=== PATIENT | male | born 1960 | race Caucasian/White ===

== ENCOUNTER 2017-05-01 14:28 | Outpatient (RCR) | payer MEDICAID ==
[2015-04-07 13:22] VITALS: BMI 27.8
--- NOTE | 2017-02-25 14:53 | PT INITIAL EVALUATION ---
MEDICAL DIAGNOSIS: L) lateral heel neuropathic ulcer TREATMENT DIAGNOSIS: L) lateral heel neuropathic ulcer DATE OF ONSET: 12/26/16 SUBJECTIVE: Pt presents today with R) transtibial amputation with prosthesis in place and open wound on L) lateral heel. Pt reports that about 3 months ago he noticed a blister on his L) lateral heel. He then "bumped" his heel on his w/ c wheel and developed a wound. He has been treating the wound at home, completing "debridement with tweezers" as well as covering the wound with ointment and gauze. He reports that presented to the ER in [place] and was referred to wound care. He reports that there were not concerns of infection at that time, no imaging was completed nor antibiotics prescribed. Pt with history of multiple amputations and non-compliance with recommended therapies, please see EMR for details. REHAB PROBLEM LIST: Open wound on L) lateral heel PREVIOUS MEDICAL HISTORY: DMII, depression, R) transtibial amputation, L) finger amputation, see EMR for details. Pt did report that he feels 'depressed ' and that he 'doesn't care, so I don't take my medications and get my prescriptions'/ OCCUPATION: Pt on disability OBJECTIVE: Sensation: Absent light touch sensation to L) distal LE and foot Special Tests: Easily palpable dorsal pedal pulse of L) foot Other Objective Findings: L) lateral heel wound: 2.5 cm L x 4.5 cm W x 0.2 cm D ASSESSMENT: Pt presents today with wound present on L) lateral heel, open to air at time of evaluation. Moderate amounts of undermining present on all edges of wound with mild necrosis of wound borders. Wound base demonstrates adhered slough at the center, but with no bogginess or jesse end feel at the wound base. PT completed conservative, selective debridement of non-viable tissue and slough with tweezers and scissors to the depth of the subcutaneous tissue in order to reveal undermined area. Wound base cleansed with sterile saline and then covered with therahoney, this was followed by 2 layers of calcium alginate with silver. Foam was cut in a manner to offload the wound base, this was all held in place with gentle tape. PT has contacted the pt's market maker and will plan for consult on friday02/28/17 for offloading options. Pt will benefit from skilled PT wound care to includes sharps debridement as well as advanced wound care product selection and application with pt education to facilitate wound healing with no further set backs. PT encouraged the patient to f/u with his PCP for medication and diabetes management. Short Term Goals 1: Pt to maintain clean, dry and intact dressing between wound care visits. 2: Wound base to demonstrate 100% granulation tissue with no s/s of infection 3: Wound to gradually epithelialize from the edges inward and demonstrate 100% closure 4: Pt to obtain proper offloading orthotic to facilitate wound healing Patient's Goals Wound healing PLAN: Patient to be seen for skilled sharps debridement as well as advanced wound care product selection and application 1-2x/week for up to 90 days. Thank you for this referral. If you have any questions, comments, or concerns about this report or plan, please contact me at . Paula Bernard, PT, DPT MTDD
[~2017-05-01 14:28] MED LIST: ACET-2031 PO; ACET-2146 PO; ALKA-SELTZER B324 M2 PO; ASPI-1471 PO; ASPI1TAB35 PO; CEFT1VIA52 IJ; CEP500 PO; CEPH-13 PO; CIPR-344 PO; CLI150 PO; CLIN300C99 PO; CYCL10TA29 PO; DOCU-202 PO; DOCU-416 PO; FAMO20TA28 PO; FLUO-177 PO; GABA-549 PO; GLYB1.2524 PO; GUAI600T57 PO; HYDR-4309 PO; INSU100V24 SQ; KET10 PO; LEVO-85 PO; LEVO750T44 PO; LISI-362 PO; LISI20TA29 PO; LOR5 PO; LOR7.5/325 PO; METF-408 PO; METF-410 PO; METF-420 PO; METH4TAB66 PO; METHO500 PO; METR-160 PO; MULT-1379 PO; NAPR220C12 PO; ONDA4TAB PO; OXYC-375 PO; OXYC-854 PO; OXYC-856 PO; OXYC-865 PO; OXYC-870 PO; PER PO; POLY17PO25 PO; PRAV10TA46 PO; PRAV80TA29 PO; PROM-110 PO; SENN-287 PO; SULF-198 PO; TRAM-420 PO; TRAM-627 PO
--- NOTE | 2017-05-07 14:53 | PT PLAN OF CARE ---
Physician: Ciara Guerra Patient is being seen: Hamlet Hall Therapist: Paula Bernard, PT, DPT Medical Diagnosis: L) lateral heel neuropathic ulcer Treatment Diagnosis: L) lateral heel neuropathic ulcer Date of Onset: 12/26/16 Date of Initial Evaluation: 02/25/17 Date patient was last seen: 05/07/17 Number of treatments: 10 Number of cancellations/No shows: 5 INTERVENTIONS: The patient has been seen for advanced wound care product selection and application as well as skilled sharps debridement in order to facilitate wound healing. Wound care was coordinated with [employer] [facility] in order to obtain an offloading boot during wound healing, they are currently working to obtain an appropriate shoe for the L) LE to prevent further skin breakdown. Short Term Goals 1: Pt to maintain clean, dry and intact dressing between wound care visits. (met ) 2: Wound base to demonstrate 100% granulation tissue with no s/s of infection ( met) 3: Wound to gradually epithelialize from the edges inward and demonstrate 100% closure (met) 4: Pt to obtain proper offloading orthotic to facilitate wound healing (met) PATIENT'S GOAL: Wound Healing Status of Patient's Goals: Met Patient Compliance: Fair Prognosis: Fair Reasons for continuing therapy: None at this time. Wound demonstrates 100% closure with good epithelial tissue present across previous wound. [facility] is working to obtain a proper shoe for the patient's L) foot to prevent further skin breakdown. The patient reports that he plans to f/u with his PCP regarding his diabetic management upon d/c from PT wound care, PT encouraged the patient to make an appointment as soon as possible. ALYSE
== END 2017-05-01 18:00 | disposition home or self-care (01) ==
LOC: PT 14:28
PROVIDERS: ATTEND Nurse Practitioner Family
DX: L97.421 Non-pressure chronic ulcer of left heel and midfoot limited to breakdown of skin (principal); E11.40 Type 2 diabetes mellitus with diabetic neuropathy, unspecified; F32.9 Major depressive disorder, single episode, unspecified; Z89.511 Acquired absence of right leg below knee; Z89.022 Acquired absence of left finger(s); Z91.19 Patient's noncompliance with other medical treatment and regimen; Z86.14 Personal history of Methicillin resistant Staphylococcus aureus infection
CPT/HCPCS: 97161

== ENCOUNTER 2018-03-05 11:19 | Outpatient (RCR) | payer SELFPAY ==
[2015-04-07 13:22] VITALS: BMI 27.8
[~2018-03-05 11:19] MED LIST changes: -HYDR-4309 PO; +HYDR-653 PO; -METF-410 PO; -METF-420 PO; +METF-450 PO; +METF-452 PO; -METR-160 PO; +METR500T54 PO; -OXYC-375 PO; +OXYC1TAB78 PO
== END 2018-03-05 18:00 | disposition home or self-care (01) ==
LOC: PT 11:19
PROVIDERS: ATTEND Nurse Practitioner Family
DX: B95.1 Streptococcus, group B, as the cause of diseases classified elsewhere (principal); B96.1 Klebsiella pneumoniae [K. pneumoniae] as the cause of diseases classified elsewhere
CPT/HCPCS: 87070; 87073; 87077; 87186

== ENCOUNTER 2018-03-05 14:44 | Inpatient (IN) | payer MEDICAID ==
[~2018-03-05] VITALS: Ht 175.3 cm; Wt 74.9 kg
[2018-03-05 15:10] VITALS: BP 141/89
--- NOTE | 2018-03-05 15:41 | Gen Surgery History & Physical ---
History of Present Illness Chief Complaint left great toe infection History of Present Illness 57 yo diabetic male with left great toe infection. he first noticed a change 10 days ago but it has gotten significantly worse over the last 3 days. it is painful and the pain extends up to the lower leg. it is more painful than his neuropathy pain. there has been some sloughing of skin and purulent drainage. he says he likely bumped it but doesn't remember when. h/o right bka. no fever. no sob. History Home Meds No Active Prescriptions or Reported Meds Allergies: Coded Allergies: penicillin G (Verified Allergy, Severe, RASH, 04/28/16) tramadol (Verified Adverse Reaction, Mild, Headache, 04/28/16) Uncoded Allergies: STRAWBERRIES (Allergy, Unknown, HIVES, 10/24/13) Patient History: FH: bipolar disorder FH: cancer AUNT AUNT FH: diabetes mellitus MOTHER AUNT GRANDMA FH: heart attack MOTHER FH: ovarian cancer GRANDMA FH: stroke MOTHER Review of Systems Constitutional: Other (chronic urinary frequency; otherwise, 10 pt ros neg except per hpi) Exam General Appearance: Alert, Awake, No Acute Distress, Afebrile Eyes: Other (per, eomi) Neck: No Masses Cardiovascular: Other (mildly tachycardic) Respiratory: No Respiratory Distress GI: Abd Soft and Non-Tender Extremities: Other (right bka. left great toe with erythema extending to dorsal aspect of foot. toe is ttp as is left lower leg. there is a large ulcer with some nonviable tissue on distal and plantar aspect of great toe. no foul odor. palp dp pulse. well-healed wound on plantar aspect of foot. ) Integumentary: Other (no rashes) Psych: Appropriate Mood & Affect Assessment and Plan Problems: (1) Toe infection Assessment & Plan: left great toe infection admit to med/surg xray left foot labs hospitalist consult for med mgmnt including diabetic mgmnt likely left great toe amp Venous Thromboembolism Antithrombotics Is Pt On Any Antithrombotics?: MAIKOL Maya Mar 05, 2018 15:40
[2018-03-05] MEDS ORDERED: ACETAMINOPHEN 325 MG TAB PO PRN (15:45)
[2018-03-05] MEDS ORDERED: NS(*) 0.9% 500 ML BAG 500 ML ONE (16:19)
[2018-03-05] MEDS: APAP/HYDROCODONE 325/7.5 TAB PO PRN ×2 (16:20→20:14)
--- NOTE | 2018-03-05 16:39 | RADIOLOGY IMAGING REPORT ---
[place] [facility] [place] NAME: Hamlet Hall : 1960 MR: [id number] V: [id number] EXAM DATE: ORDERING PHYSICIAN: MAIKOL ABERNATHY TECHNOLOGIST: Location: [facility] - [place] Patient: Hamlet Hall : 1960 Visit/Account:[id number] Date of Sevice: 03/05/2018 FOOT 2 VIEW LEFT HISTORY: Possible osteomyelitis left great toe. Redness and swelling history of diabetes, MRSA ADDITIONAL HISTORY: None. COMPARISON: Correlation made with prior film of 02/23/2013 FINDINGS: 2 views were obtained of the left foot. Summary findings anatomic detail is obscured by overlying ba ndage material. There is osteopenia of the distal tip of the distal phalanx of the does appear to be some loss of cortex which is concerning for osteomyelitis. Defect in the soft tissues overlying the distal phalanx are consistent with a wound. Proximal phalanx is intact. First metatarsal is within normal limits. Second through fifth digits are grossly unremarkable. There is no evidence of fracture. No findings to suggest osteomyelitis. There is periarticular osteopenia. Soft tissue swelling is present around the ankle extending into the soft tissues of the dorsum of the foot. Extensive vascular calcifications noted. IMPRESSION: 1. Findings concerning for osteomyelitis involving the distal tip of the distal phalanx of the first digit. 2. Soft tissue swelling and findings consistent with a wound involving the distal end of the first d igit. 3. Periarticular osteopenia. 4. Extensive vascular calcifications. Report Dictated By: Alma Hernandez MD at 03/05/2018 4:29 PM Report E-Signed By: Alma Hernandez MD at 03/05/2018 4:33 PM WSN:[id number]
[2018-03-05] MEDS ORDERED: VANCOMYCIN(*) 1 GM VIAL 2 GM in NS(*) 0.9% 500 ML BAG 500 ML IVPB ONE (17:00)
[2018-03-05 17:10] LABS: PLATELET COUNT, AUTOMATED 248 K/uL (150-450)
[2018-03-05] MEDS: INSULIN HUM LISPRO 100 UN/ML 3 ML VIAL SUBQ PRN ×2 (18:10→20:14)
[2018-03-05 19:20] VITALS: BP 122/88
--- NOTE | 2018-03-05 20:26 | Hospitalist Consultation ---
History of Present Illness Requesting Physician Kiko Reason for Consult medication management History of Present Illness 57yo male with uncontrolled diabetes who is in the hospital for a cellulitic great toe. He is not on any medication for his diabetes for many months. He denies any cp/sob/LE edema/orthopnea/PND. He has never had problems with anesthesia. He denies any h/o DVT/PE, CAD, CVD, CHF or COPD. History Problems: (1) Hyperglycemia due to type 2 diabetes mellitus Status: Acute Home Meds No Active Prescriptions or Reported Meds Allergies: Coded Allergies: penicillin G (Verified Allergy, Severe, RASH, 04/28/16) tramadol (Verified Adverse Reaction, Mild, Headache, 04/28/16) Uncoded Allergies: STRAWBERRIES (Allergy, Unknown, HIVES, 10/24/13) Patient History: FH: bipolar disorder FH: cancer AUNT AUNT FH: diabetes mellitus MOTHER AUNT GRANDMA FH: heart attack MOTHER FH: ovarian cancer GRANDMA FH: stroke MOTHER Other Social/Family Hx He is an occasional alcohol, cigarette and marijuana user. Usually a couple times a month. He last used cocaine about 14 years ago. Hx Smoking: Yes ("4/YEAR") Smoking Status: Light Tobacco Smoker Exposure to Second Hand Smoke?: Yes Caffeine Intake: Soda Caffeine/Cups Per Day: 4 Hx Alcohol Use: Yes Hx Substance Use Disorder: Yes (MARiJUANA ) Social Drug Use: Occasional Social Drugs: Marijuana, Prescription Drugs, Meth, Amphetamines, Crack, Cocaine Amount Of Social Drug/s Used: methamphetamine months ago Review of Systems All Systems Reviewed/Normal: Yes, Except as Noted Exam Vital Signs Vital Signs Date Time Temp Pulse Resp B/P (MAP) Pulse Ox O2 Delivery O2 Flow Rate FiO2 03/05/18 19:20 98.6 110 18 122/88 (99) 93 Room Air 03/05/18 15:37 1.0 General Appearance: Alert, Awake, No Acute Distress Cardiovascular: Regular Rate and Rhythm Respiratory: Clear to Auscultation GI: Abd Soft and Non-Tender Extremities: No Edema Integumentary: Other (Mild erythema over left foot without clear edges. Wrap over great toe. BKA on right and stump is without sores or erythema.) Medical Decision Making Data Points Result Diagram: 03/05/18 1700 03/05/18 1700 EKG / Imaging Imaging Left foot Xray - 1. Findings concerning for osteomyelitis involving the distal tip of the distal phalanx of the first digit. 2. Soft tissue swelling and findings consistent with a wound involving the distal end of the first digit. 3. Periarticular osteopenia. 4. Extensive vascular calcifications. Assessment and Plan Problems: (1) Pre-op evaluation Status: Acute Assessment & Plan: The patient has a low to moderate risk of pulmonary secondary to a remote smoking history and has a low to moderate risk cardiac complications secondary to uncontrolled diabetes, and a remote smoking history. He has no worrisome symptoms or physical exam findings. ECG and CXR are pending. If those are without concerning findings then he could have surgery as soon as it is necessary. He has low to moderate risk of bleeding secondary to Excedrin (which has ASA) yesterday. (2) Diabetic foot ulcer Status: Chronic Assessment & Plan: Left great toe with cellulitis extending into the foot. Dr. Hoover is managing the Vancomycin/Levofloxacin, which should provide good coverage. He doesn't appear toxic. WBC is wnl. He is afebrile and his BP is controlled. However, he is mildly tachycardic. (3) Hyperglycemia due to type 2 diabetes mellitus Status: Acute Assessment & Plan: He hasn't taken any medication for many months. Glucose is likely where he has been for awhile. He isn't hyperosmolar or in DKA. Will use SSI level 3 to cover for now and then consider how treat it half-way. He expressed understanding that he needs to control his blood sugars in order to have a good result from surgery. He is willing to be on medication. (4) Hyponatremia Status: Acute Assessment & Plan: The sodium corrects to normal when correcting for hyperglycemia. Venous Thromboembolism Antithrombotics Is Pt On Any Antithrombotics?: No Exam Sepsis Risk: No Definite Risk IQRA ROSADO MD Mar 05, 2018 20:26
[2018-03-05] MEDS: LEVOFLOXACIN/D5W*500 MG/100 ML 100 ML IVPB SCH (21:17)
--- NOTE | 2018-03-05 22:17 | EKG ---
FACILITY: [facility] PATIENT NAME: DONNIE COVARRUBIAS : [id number] MR: [id number] V: [id number] EXAM DATE: ORDERING PHYSICIAN: IQRA ROSADO TECHNOLOGIST: DIMA Watson Reason : TACHYCARDIA Blood Pressure : / mmHG Vent. Rate : 110 BPM Atrial Rate : 110 BPM P-R Int : 200 ms QRS Dur : 100 ms QT Int : 342 ms P-R-T Axes : 059 -28 066 degrees QTc Int : 462 ms Sinus tachycardia with 1st degree AV block R wave progression consistent with an old ant/sep MD vs lead placement When compared with ECG of 01-DEC-2014 12:01, Inferior T flattening has resolved QT has shortened Confirmed by IQRA ROSADO ([id number]) on 03/06/2018 6:39:48 AM Referred By: Confirmed By:IQRA ROSADO
--- NOTE | 2018-03-05 22:33 | RADIOLOGY IMAGING REPORT ---
FACILITY: [facility] - [place] PATIENT NAME: Hamlet Hall : 1960 MR: [id number] V: [id number] EXAM DATE: ORDERING PHYSICIAN: IQRA ROSADO TECHNOLOGIST: Location: [facility] Patient: Hamlet Hall : 1960 Visit/Account:[id number] Date of Sevice: 03/05/2018 CHEST SINGLE AP Indication: Tobacco use. Comparison: 10/27/2013 and 02/26/2013 Findings: There are persistent coarse interstitial opacities seen bilaterally. These have a perihilar predomina nt distribution and are greater on the right than on the left. Superimposed in the right midlung is a more focal patchy airspace opacity which is new from the prior study. There is some peripheral atele ctasis as well. Subtle nodular opacity seen in the right upper lung which measures 8 mm in size this was not definitely seen on the prior. No pneumothorax or pleural effusion. Heart size is normal. Central pulmonary arteries are prominent. IMPRESSION: 1. Chronic appearing perihilar interstitial opacities bilaterally with a new airspace opacity centere d in the right midlung. This may be infectious or inflammatory. At minimum, short interval follow-up radiographs recommended to evaluate for clearing. 2. Indeterminant 8mm nodular opacity seen in the right upper lung. This is new from 2013. CT scan of the thorax recommended for further workup to exclude a pulmonary nodule. Report Dictated By: Som Tinajero at 03/05/2018 10:26 PM Report E-Signed By: Som Tinajero at 03/05/2018 10:30 PM WSN:[id number]
[2018-03-06] MEDS: VANCOMYCIN(*) 1 GM VIAL 1 GM, VANCOMYCIN (*) 0.5 GM VIAL 0.25 GM in NS(*) 0.9% 250 ML B... IVPB SCH ×4 (00:03→23:17)
[2018-03-06 00:13] VITALS: BP 135/86
[2018-03-06 05:40] VITALS: BP 132/88
[2018-03-06] MEDS: APAP/HYDROCODONE 325/7.5 TAB PO PRN ×4 (05:41→20:53)
[2018-03-06] MEDS: INSULIN HUM LISPRO 100 UN/ML 3 ML VIAL SUBQ PRN ×4 (08:17→20:33)
[2018-03-06 08:18] VITALS: BP 121/81
--- NOTE | 2018-03-06 08:18 | General Surgery Progress Note ---
Subjective Progress Notes Subjective pain in foot and extending up lower leg still present but much improved. Physical Exam Vital Signs Date Time Temp Pulse Resp B/P (MAP) Pulse Ox O2 Delivery O2 Flow Rate FiO2 03/06/18 05:40 98 16 132/88 (103) 90 Room Air 03/06/18 00:13 97.6 03/05/18 15:37 1.0 Intake and Output 03/06/18 07:00 Intake Total 1940 ml Output Total 1600 ml Balance 340 ml Intake Oral 1340 ml IV Total 600 ml Output Urine Total 1600 ml # Voids 3 General Appearance: Alert, Awake, No Acute Distress, Afebrile Cardiovascular: Other (mild tachycardia earlier but now reg rate) Extremities: Other (left lower extremity swelling improved. some ttp but impro luis. wound similar in appearance to yesterday.) Result Diagram: 03/05/18 1700 03/05/18 1700 Assessment and Plan Problems: (1) Toe infection Assessment & Plan: left great toe infection improving on abx xray shows likely osteo distal phalanx of left great toe cont abx wound care elevate extremity hospitalist consulted for med mgmnt amp of left great toe (no OR time until this evening so it will likely occur this weekend) MAIKOL ABERNATHY Mar 06, 2018 08:18
[2018-03-06 09:38] VITALS: Ht 175.3 cm; Wt 74.9 kg
--- NOTE | 2018-03-06 09:56 | Hospitalist Progress Note ---
Subjective Progress Notes Subjective He has no complaints this morning. He had no acute events overnight. His blood sugars have decreased to 263 this morning from 416 last night. Patient Complains of: Cardiovascular: No: Chest Pain Respiratory: No: Shortness of Breath Physical Exam Vital Signs Date Time Temp Pulse Resp B/P (MAP) Pulse Ox O2 Delivery O2 Flow Rate FiO2 03/06/18 08:20 86 03/06/18 08:18 98.6 91 16 121/81 (94) Room Air 03/05/18 15:37 1.0 Intake and Output 03/06/18 00:00 Intake Total 1390 ml Output Total 700 ml Balance 690 ml Intake Oral 1040 ml IV Total 350 ml Output Urine Total 700 ml # Voids 3 General Appearance: Alert, Awake, No Acute Distress, Afebrile Neuro: No Gross deficits Cardiovascular: Regular Rate and Rhythm Respiratory: No Respiratory Distress, Other (diminished lung sounds throughout) GI: Soft and Non-Tender Extremities: Warm, Perfused Psych: Alert & Oriented X3, Appropriate Mood & Affect Result Diagram: 03/05/18 1700 03/05/18 170 Assessment and Plan Problems: (1) Pre-op evaluation Status: Acute Assessment & Plan: The patient has a low to moderate risk of pulmonary secondary to a remote smoking history and has a low to moderate risk cardiac complications secondary to uncontrolled diabetes, and a remote smoking history. He has no worrisome symptoms or physical exam findings. ECG and CXR performed. He will use IS for atelectasis seen on chest x-ray. He will get CBC, CMP and PT/INR for probable surgery tomorrow. He has low to moderate risk of bleeding secondary to Excedrin (which has ASA) 03/05. (2) Diabetic foot ulcer Status: Chronic Assessment & Plan: Left great toe with cellulitis extending into the foot. Dr. Hoover is managing the Vancomycin/Levofloxacin, which should provide good coverage. He doesn't appear toxic. WBC is wnl. He is afebrile and his BP is controlled. Tachycardia improving. (3) Hyperglycemia due to type 2 diabetes mellitus Status: Acute Assessment & Plan: He presented with glucose levels in the 400's. He hasn't taken any medication for many months. Glucose is likely where he has been for awhile. He isn't hyperosmolar or in DKA. Will use SSI level 3 to cover for now and then consider how treat it penitentiary. He expressed understanding that he needs to control his blood sugars in order to have a good result from surgery. He is willing to be on medication. We will add Lantus 10units at night, to reduce sliding scale coverage. (4) Hyponatremia Status: Acute Assessment & Plan: The sodium corrects to normal when correcting for hyperglycemia. Exam Sepsis Risk: No Definite Risk BRAULIO AYERS S[employer]ICA FILTER OPERATOR Mar 06, 2018 09:56
--- NOTE | 2018-03-06 09:58 | Medical Nutrition Therapy ---
Nutrition Anthropometrics Height (Inches): 69.00 Height (Calculated Centimeters: 175.010713 Weight (Pounds): 165 Weight (Calculated Kilograms): 74.928 BMI: 24.4 Artemio Nutrition Score: Adequate Artemio Nutrition Risk Score: 20 Dietary Referral Nutrition Risk Factors: Special Diet Nutrition Risk Comment: Physical Findings Physical Appearance: WNR Skin Appearance Skin Appearance: Edema Edema Location Modifier: Left Edema Location: Lower Extremity Type of Edema: Degree of Edema: Gastrointestinal Symptoms GI Symtoms: Tube Present: Bowel Sounds: Recent Bowel Pattern: Stool Characteristics: Nutrition/Food History Non-compliant W/Diet Nutritional Diagnosis Nutritional Risk Acuity 2: Blood Glucose > 300mg/dl, Abcess/Non-Healing Wound Nutritional Risk Acuity 3: Substance abuse Past Medical History: HX NON-COMPLIANCE WITH ALL ASPECTS OF DIABETES PER H&P, Toe amputation, depression, T2DM, diabetic neuropathy, diabetic foot ulcer, hypertension, wound infection, illicit drug use Nutritional Acuity: 2-Moderate Nutrition Diagnosis: Inappropriate Carb Intake Nutrition Etiology: Disinterested in Nutr. Ed Nutrition Problem/Etiology/Sym: Excessive Carbohydrate Intake related to Food- and nutrition-related knowledge deficit concerning appropriate amount of carbohydrate intake and Limited adherence with recommendations to modify carbohydrate intake AEB glucose of 416 upon admission. Energy Requirement: 2360 ([place] Jeor: Actual BW X 1.5) Protein Requirement: 75 (Actual BW Kg X 1.0) Fluid Requirement: 2360 Diet Type: Diabetic Nutrition Intervention: Cont diet as ordered Diet Comment To RSA: ALLERGY TO STRAWBERRIES Nutrition Monitoring & Eval Nutrition Goals: Eat 75-100% Meal RD Patient Assessment Time: [address] Assessment Type: RD Assessment Patient Nutrition Acuity: 2-Moderate Follow Up Date: Mar 08, 2018 Nutritional Comment: 03/06/18 Pt admitted for left great toe infection with plans for amputation. HX of T2DM with non-compliance and no recent diabetes medication taken. Within normal wt range with BMI of 24.4. Alb 2.7, Glu 263. Receiving Diabetes diet with not reports of intake. Follow clinical progression, labs, intake, etc. -ANASTACIO WHITNEY Mar 06, 2018 09:58
[2018-03-06] MEDS ORDERED: NS(*) 0.9% 1000 ML BAG 1,000 ML IV PRN (11:05)
--- NOTE | 2018-03-06 11:59 | General Surgery Progress Note ---
Subjective Progress Notes Subjective toe and leg feel much better than yesterday Physical Exam Vital Signs Date Time Temp Pulse Resp B/P (MAP) Pulse Ox O2 Delivery O2 Flow Rate FiO2 03/06/18 08:20 86 03/06/18 08:18 98.6 91 16 121/81 (94) Room Air 03/05/18 15:37 1.0 Intake and Output 03/06/18 06:59 Intake Total 1940 ml Output Total 1600 ml Balance 340 ml Intake Oral 1340 ml IV Total 600 ml Output Urine Total 1600 ml # Voids 3 General Appearance: Alert, Awake, No Acute Distress Extremities: Pulses (2+ palpable left DP; 1+ PT), Other (left great toe edematous, not erythematous but violaceous) Psych: Alert & Oriented X3, Appropriate Mood & Affect Result Diagram: 03/05/18 1700 03/05/18 170 Assessment and Plan Problems: (1) Toe infection Status: Acute Assessment & Plan: left great toe infection improving on abx xray shows likely osteo distal phalanx of left great toe cont abx wound care elevate extremity hospitalist consulted for med mgmnt amp of left great toe (no OR time until this evening so it will likely occur this weekend) 03/06/18 1155: I am assuming care from Dr. Hoover. In review of his chart and exam, I agree that it appears that he has osteomyelitis of the distal phalanx. He is also improving with current antibiotic regimen. His hyperglycemia is improving but persists. He would benefit from optimizing both the inflammatory/infectious process and hyperglycemia before proceeding with the amputation. So long as there is progress evident, I will postpone amputation. Discussed the plan with the patient and hospitalist service. (2) Diabetic foot ulcer with osteomyelitis Onset Date: ~ 02/25/2018 Status: Acute Time Spent: < 30 min Exam Sepsis Risk: No Definite Risk KAREN BHATIA MD Mar 06, 2018 11:42
[2018-03-06 15:17] VITALS: BP 130/80
[2018-03-06] MEDS: LEVOFLOXACIN/D5W*500 MG/100 ML 100 ML IVPB SCH (20:31)
[2018-03-06] MEDS: DOCUSATE SODIUM 100 MG CAP PO SCH (20:31)
[2018-03-06] MEDS: INSULIN GLARGINE 100 U/ML 3 ML PEN SUBQ SCH (20:32)
[2018-03-06 20:49] VITALS: BP 149/94
[2018-03-06 23:09] VITALS: BP 141/89
[2018-03-07 03:12] VITALS: BP 145/102
[2018-03-07] MEDS: APAP/HYDROCODONE 325/7.5 TAB PO PRN ×2 (03:21→20:59)
[2018-03-07 05:38] LABS: INR 1.03
[2018-03-07 05:42] LABS: PLATELET COUNT, AUTOMATED 243 K/uL (150-450)
[2018-03-07 07:37] VITALS: BP 117/85
[2018-03-07] MEDS: INSULIN HUM LISPRO 100 UN/ML 3 ML VIAL SUBQ PRN ×4 (07:42→20:46)
[2018-03-07] MEDS: VANCOMYCIN(*) 1 GM VIAL 1 GM, VANCOMYCIN (*) 0.5 GM VIAL 0.5 GM in NS(*) 0.9% 250 ML BA... IVPB SCH ×2 (08:38→16:20)
[2018-03-07] MEDS: DOCUSATE SODIUM 100 MG CAP PO SCH ×2 (08:39→20:59)
--- NOTE | 2018-03-07 09:40 | General Surgery Progress Note ---
Subjective Progress Notes Subjective Toe is throbbing but overall he continues to feel better Physical Exam Vital Signs Date Time Temp Pulse Resp B/P (MAP) Pulse Ox O2 Delivery O2 Flow Rate FiO2 03/07/18 07:43 95 03/07/18 07:43 Room Air 03/07/18 07:37 97.9 92 18 117/85 (96) 03/06/18 23:09 1.0 Intake and Output 03/07/18 07:00 Intake Total 1090 ml Output Total 3450 ml Balance -2360 ml Intake Oral 820 ml IV Total 270 ml Output Urine Total 3450 ml # Voids 1 General Appearance: Alert, Awake, No Acute Distress Extremities: Other (toe is wrapped, report is that it looks incrementally better, I will examine directly tomorrow) Result Diagram: 03/07/18 0508 03/07/18 0508 Assessment and Plan Problems: (1) Toe infection Status: Acute Assessment & Plan: left great toe infection improving on abx xray shows likely osteo distal phalanx of left great toe cont abx wound care elevate extremity hospitalist consulted for med mgmnt amp of left great toe (no OR time until this evening so it will likely occur this weekend) 03/06/18 1155: I am assuming care from Dr. Hoover. In review of his chart and e xam, I agree that it appears that he has osteomyelitis of the distal phalanx. He is also improving with current antibiotic regimen. His hyperglycemia is improving but persists. He would benefit from optimizing both the inflammatory/infectious process and hyperglycemia before proceeding with the a mputation. So long as there is progress evident, I will postpone amputation. Discussed the plan with the patient and hospitalist service. 03/07/18: continue to medically optimize for expected amputation to create best environment for postoperative healing. (2) Diabetic foot ulcer with osteomyelitis Onset Date: ~ 02/25/2018 Status: Acute Time Spent: < 30 min Exam Sepsis Risk: No Definite Risk KAREN BHATIA MD Mar 07, 2018 08:53
--- NOTE | 2018-03-07 10:19 | Hospitalist Progress Note ---
Subjective Progress Notes Subjective He denies any specific complaints. No fever. Physical Exam Vital Signs Date Time Temp Pulse Resp B/P (MAP) Pulse Ox O2 Delivery O2 Flow Rate FiO2 03/07/18 07:43 95 03/07/18 07:43 Room Air 03/07/18 07:37 97.9 92 18 117/85 (96) 03/06/18 23:09 1.0 Intake and Output 03/07/18 07:00 Intake Total 1090 ml Output Total 3450 ml Balance -2360 ml Intake Oral 820 ml IV Total 270 ml Output Urine Total 3450 ml # Voids 1 General Appearance: Alert, Awake Extremities: Other (Right LE BKA. Left great toe with multiple confluent ulcerations and some serosanguinous drainage.) Integumentary: Other (only minimal surrounding erythema on left great toe/remainder of foot looks good) Psych: Alert & Oriented X3 Result Diagram: 03/07/18 0508 03/07/18 0508 Assessment and Plan Problems: (1) Pre-op evaluation Status: Acute Assessment & Plan: The patient has a low to moderate risk of pulmonary complications secondary to a remote smoking history and has a low to moderate risk cardiac complications secondary to uncontrolled diabetes, and a remote smoking history. He has no worrisome symptoms or physical exam findings. ECG and CXR performed. He will use incentive spirometry for atelectasis seen on chest x-ray. He has low to moderate risk of bleeding secondary to Excedrin (which has ASA) 03/05. (2) Diabetic foot ulcer Status: Chronic Assessment & Plan: Left great toe with cellulitis extending into the foot. Dr. Hoover is managing the Vancomycin/Levofloxacin, which should provide good coverage. He doesn't appear toxic. WBC is in normal range. He is afebrile and his BP is controlled. (3) Hyperglycemia due to type 2 diabetes mellitus Status: Acute Assessment & Plan: He presented with glucose levels in the 400's. He hadn't taken any medication for many months. Glucose is likely where he has been for awhile. He wasn't hyperosmolar or in DKA. Will use Lantus 10units SQ at night and SSI to cover for now and then consider how treat it long term care administrator. He expressed understanding that he needs to control his blood sugars in order to have a good result from surgery. He is willing to be on medication. (4) Hyponatremia Status: Acute Assessment & Plan: The sodium corrects to normal when correcting for hyperglycemia. (5) Lung nodule Assessment & Plan: Seen on CXR. Will set up for CT scan of his chest to further evaluate. He does have past history of tobacco/substance abuse. Exam Sepsis Risk: No Definite Risk LINDSEY KERR MD Mar 07, 2018 10:19
--- NOTE | 2018-03-07 10:41 | Antimicrobial Stewardship ---
Antimicrobial Stewardship Empiricly appropriate: Yes Comment On Vancomycin and Levaquin for osteomyelitis of toe Renal/Hepatic dosing: Yes Serum concentration checked: Yes (Monitoring Vanco Troughs. 03/06/18 13.63 ; 03/07/18 14.16. Increased dose of Vanco from 1.25g IV Q8h to 1.5 g IV q8h) Reviewed for Drug Interaction: Yes Monitored for Toxicities: Yes Clinically stable/improving: Yes IV to PO Opportunity: No Determine cumulative duration: Undetermined as may do amputation Comment If do amputation and remove all infected bone then may only need one more week following the amputation. May possibly need 6 weeks. RICKI KHOURY Mar 07, 2018 10:41
[2018-03-07 11:00] VITALS: BP 142/93
[2018-03-07] MEDS ORDERED: IOPAMIDOL 76% 50 ML INFUS BTL 50 ML ONE (11:47)
--- NOTE | 2018-03-07 15:07 | RADIOLOGY IMAGING REPORT ---
FACILITY: [facility] [place] PATIENT NAME: Hamlet Hall : 1960 MR: [id number] V: [id number] EXAM DATE: ORDERING PHYSICIAN: LINDSEY KERR TECHNOLOGIST: [place] [facility] [place] Hamlet Hall : 1960 Visit/Account:[id number] Date of Sevice: 03/07/2018 CT chest without and with contrast Indication: Lung nodule. Comparison: Chest x-ray on 03/05/2018. Technique: Axial CT images are obtained through the chest prior to and after administration of 75 mL Isovue 370 IV contrast. Reformatted coronal and sagittal images were reviewed. One of the following dose optimization techniques was utilized in the performance of this exam: Autom ated exposure control; adjustment of the mA and/or kV according to the patient's size; or use of an i terative reconstruction technique. Specific details can be referenced in the facility's radiology C T exam operational policy. Findings: Heart is normal size without pericardial effusion. Mild coronary artery calcifications. Aorta shows n o aneurysm or dissection. The pulmonary arteries are grossly normal. The mediastinum and hilar regions show a few small lymph nodes. There is more prominent lymph nodes i n the right hilar region measuring 1.6 x 1.7 cm. There are also small calcified lymph nodes present. No abnormal density seen in the mediastinum. No definite right upper lobe nodule is identified. The left lower lobe does show a noncalcified nodul e measuring 7 x 6 mm seen on image #233 of series 6. No other discrete nodules are identified. The eris ngs do show mild peripheral interstitial chronic changes. Lungs also show mild dependent atelectasis. There is a prominent scar present in the right middle lobe lateral aspect. No defined mass is seen i n this region. No consolidations, pleural effusion or pneumothorax. The distal right trachea does kitty w some debris. There is also some debris seen in the mid right mainstem bronchus. Airways are otherwi se clear. Bony structures show no acute fractures or aggressive bony lesions. Chest wall shows no enlarged axil zuleima lymph nodes or masses. Limited views of the upper abdomen are unremarkable. IMPRESSION: 1. No discrete nodule seen in the right upper lobe. There is a 7 mm nodule seen in the left lower lob e. This noncalcified. This too small characterize and could be postinflammatory as there are small ca lcified lymph nodes present. However suggest follow-up per Fleischner guidelines described below. 2. Lungs do show mild peripheral chronic interstitial changes. There is a prominent scar seen in the lateral aspect right middle lobe without a discrete nodule or mass. No indication of acute cardiopulm onary disease. 3. There are some calcified lymph nodes and some small amount of prominent lymph nodes in mediastinum and hilar regions. This may be all secondary to previous granulomatous disease however the noncalcif ied lymph nodes are nonspecific at this time. 4. Mild debris is seen in the right-sided distal trachea and the mid aspect the right mainstem bronch us. FLEISCHNER SOCIETY FOLLOW-UP GUIDELINES FOR NEWLY DETECTED INCIDENTAL NODULES IN PERSONS 35 YEARS OF AGE OR OLDER. *THESE RECOMMENDATIONS DO NOT APPLY TO LUNG CANCER SCREENING, PATIENTS WITH IMMUNOSUPPRESSION , OR PA TIENTS WITH KNOWN PRIMARY MALIGNANCY. SOLITARY SOLID NODULES If nodule size is less than 6 mm: Low risk patient - no follow up needed High risk patient - Optional CT at 12 months. If nodule size is 6-8 mm: Low risk patient - follow up CT at 6-12 months, then consider CT at 18-24 months if no change. High risk patient - follow up CT at 6-12 months, then CT at 18-24 months if no change. If nodule size is greater than 8 mm: Low risk patient - Consider CT at 3, 9 months, and 24 months; or PET/CT, or tissue sampling, or a com bination thereof. High risk patient - Consider CT at 3, 9 months, and 24 months; or PET/CT, or tissue sampling, or a co mbination thereof. LOW RISK PATIENT: Minimal or absent history of tobacco use and of ther known risk factors. HIGH RISK PATIENT: Tobacco use, family history of lung cancer, upper pulmonary lobe location of nodul e, presence of emphysema, pulmonary fibrosis, older age.Davion H, Farrukh DP, Jolanta CANO, et al. Guidel roger for Management of Incidental Pulmonary Nodules Detected on CT Images: From the Fleischner Soci[employer] y 2017. Radiology. Report Dictated By: Glynn Engle at 03/07/2018 2:49 PM Report E-Signed By: Glynn Engle at 03/07/2018 3:03 PM WSN:[id number]
[2018-03-07 15:09] VITALS: BP 140/98
--- NOTE | 2018-03-07 20:47 | Medical Nutrition Therapy ---
Nutrition Anthropometrics Height (Inches): 69.00 Height (Calculated Centimeters: 175.528672 Weight (Pounds): 165 Weight (Calculated Kilograms): 74.928 BMI: 24.4 Artemio Nutrition Score: Adequate Artemio Nutrition Risk Score: 20 Dietary Referral Nutrition Risk Factors: Special Diet Nutrition Risk Comment: Physical Findings Physical Appearance: WNR Skin Appearance Skin Appearance: Edema Edema Location Modifier: Left Edema Location: Lower Extremity Type of Edema: Degree of Edema: Gastrointestinal Symptoms GI Symtoms: Tube Present: Bowel Sounds: Recent Bowel Pattern: Stool Characteristics: Nutrition/Food History Non-compliant W/Diet Nutritional Diagnosis Nutritional Risk Acuity 2: Blood Glucose > 300mg/dl, Abcess/Non-Healing Wound Nutritional Risk Acuity 3: Substance abuse Past Medical History: HX NON-COMPLIANCE WITH ALL ASPECTS OF DIABETES PER H&P, Toe amputation, depression, T2DM, diabetic neuropathy, diabetic foot ulcer, hypertension, wound infection, illicit drug use Nutritional Acuity: 2-Moderate Nutrition Diagnosis: Inappropriate Carb Intake Nutrition Etiology: Disinterested in Nutr. Ed Nutrition Problem/Etiology/Sym: Excessive Carbohydrate Intake related to Food- and nutrition-related knowledge deficit concerning appropriate amount of carbohydrate intake and Limited adherence with recommendations to modify carbohydrate intake AEB glucose of 416 upon admission. Energy Requirement: 2360 ([place]-St Jeor: Actual BW X 1.5) Protein Requirement: 75 (Actual BW Kg X 1.0) Fluid Requirement: 2360 Diet Type: Diabetic Nutrition Intervention: Cont diet as ordered Diet Comment To RSA: ALLERGY TO STRAWBERRIES Nutrition Monitoring & Eval Nutrition Goals: Eat 75-100% Meal RD Patient Assessment Time: [address] Assessment Type: RD Re-Assessment Patient Nutrition Acuity: 2-Moderate Follow Up Date: Mar 11, 2018 Nutritional Comment: 03/06/18 Pt admitted for left great toe infection with plans for amputation. HX of T2DM with non-compliance and no recent diabetes medication taken. Within normal wt range with BMI of 24.4. Alb 2.7, Glu 263. Receiving Diabetes diet with no reports of intake. Follow clinical progression, labs, intake, etc. -T 03/07/18 Alb 2.5, Glu 324, Low H/H. Lantus AM and HS, Lispro SSI. Consuming 100% of meals. Follow intake, labs, etc. -ANASTACIO WHITNEY Mar 07, 2018 20:47
[2018-03-07] MEDS: LEVOFLOXACIN/D5W*500 MG/100 ML 100 ML IVPB SCH (20:58)
[2018-03-07] MEDS: INSULIN GLARGINE 100 U/ML 3 ML PEN SUBQ SCH (21:00)
[2018-03-07 22:15] VITALS: BP 116/73
[2018-03-08] MEDS: VANCOMYCIN(*) 1 GM VIAL 1 GM, VANCOMYCIN (*) 0.5 GM VIAL 0.5 GM in NS(*) 0.9% 250 ML BA... IVPB SCH ×3 (00:19→17:00)
[2018-03-08] MEDS ORDERED: NS(*) 0.9% 1000 ML BAG 1,000 ML IV PRN (01:59)
[2018-03-08 03:48] VITALS: BP 132/94
[2018-03-08] MEDS: DOCUSATE SODIUM 100 MG CAP PO SCH ×2 (08:40→21:00)
[2018-03-08] MEDS: INSULIN GLARGINE 100 U/ML 3 ML PEN SUBQ SCH ×2 (08:48→21:02)
[2018-03-08] MEDS: INSULIN HUM LISPRO 100 UN/ML 3 ML VIAL SUBQ PRN ×4 (08:48→21:01)
[2018-03-08 08:55] VITALS: BP 120/79
[2018-03-08] MEDS: APAP/HYDROCODONE 325/7.5 TAB PO PRN ×2 (09:06→17:12)
--- NOTE | 2018-03-08 09:34 | General Surgery Progress Note ---
Subjective Progress Notes Subjective frustrated, not able to sleep due to multiple interruptions, toe is throbbing Physical Exam Vital Signs Date Time Temp Pulse Resp B/P (MAP) Pulse Ox O2 Delivery O2 Flow Rate FiO2 03/08/18 08:55 98.0 90 16 120/79 (93) 91 Room Air 03/06/18 23:09 1.0 Intake and Output 03/08/18 07:00 Intake Total 2941 ml Output Total 5880 ml Balance -2939 ml Intake Oral 2046 ml IV Total 895 ml Output Urine Total 5880 ml # Voids 10 General Appearance: Alert, Awake Neuro: No Gross deficits Extremities: Other (Toe remains swollen, no erythema, violaceous appearance decrease as in an improvement, bleeding at time with dressing change) Result Diagram: 03/07/18 0508 03/07/18 0508 Assessment and Plan Problems: (1) Toe infection Status: Acute Assessment & Plan: left great toe infection improving on abx xray shows likely osteo distal phalanx of left great toe cont abx wound care elevate extremity hospitalist consulted for med mgmnt amp of left great toe (no OR time until this evening so it will likely occur this weekend) 03/06/18 1155: I am assuming care from Dr. Hoover. In review of his chart and exam, I agree that it appears that he has osteomyelitis of the distal phalanx. He is also improving with current antibiotic regimen. His hyperglycemia is improving but persists. He would benefit from optimizing both the inflammatory/infectious process and hyperglycemia before proceeding with the amputation. So long as there is progress evident, I will postpone amputation. Discussed the plan with the patient and hospitalist service. 03/07/18: continue to medically optimize for expected amputation to create best environment for postoperative healing. 03/08/18: his toe is improved again some today. Glucose levels consistently in high 200s to 300s. Long acting insulin is added today. Recommend continuing optimization of medical care with anticipated amputation of great toe on Friday by Dr. Hoover. Timing the amputation with medical optimization is critical to keeping the amputation limited to his toe at this time. I have also addressed his complaints of being unable to sleep due to interruptions by requesting that his care be consolidated and VS to [facility]. (2) Diabetic foot ulcer with osteomyelitis Onset Date: ~ 02/25/2018 Status: Acute Time Spent: < 30 min Exam Sepsis Risk: No Definite Risk KAREN BHATIA MD Mar 08, 2018 09:34
--- NOTE | 2018-03-08 11:06 | Hospitalist Progress Note ---
Subjective Progress Notes Subjective He is upset that there were problems with his IV yesterday. He denies cp/sob. Physical Exam Vital Signs Date Time Temp Pulse Resp B/P (MAP) Pulse Ox O2 Delivery O2 Flow Rate FiO2 03/08/18 09:06 91 Room Air 03/08/18 08:55 98.0 90 16 120/79 (93) 03/06/18 23:09 1.0 Intake and Output 03/08/18 07:00 Intake Total 2941 ml Output Total 5880 ml Balance -2939 ml Intake Oral 2046 ml IV Total 895 ml Output Urine Total 5880 ml # Voids 10 General Appearance: Alert, Awake, No Acute Distress Integumentary: Other (left foot is without erythema or swelling. The left 1st toe is swollen, mascerated ) Result Diagram: 03/07/1850703/07/18507 Assessment and Plan Problems: (1) Pre-op evaluation Status: Acute Assessment & Plan: The patient has a low to moderate risk of pulmonary complications secondary to a remote smoking history and has a low to moderate risk cardiac complications secondary to uncontrolled diabetes, and a remote smoking history. He has no worrisome symptoms or physical exam findings. ECG and CXR performed. He will use incentive spirometry for atelectasis seen on chest x-ray. He has low to moderate risk of bleeding secondary to Excedrin (which has ASA) 03/05. (2) Diabetic foot ulcer Status: Chronic Assessment & Plan: Left great toe with cellulitis extending into the foot. Dr. Hoover is managing the Vancomycin/Levofloxacin, which should provide good coverage. He doesn't appear toxic. WBC is in normal range. He is afebrile and his BP is controlled. (3) Hyperglycemia due to type 2 diabetes mellitus Status: Acute Assessment & Plan: He presented with glucose levels in the 400's. He hadn't taken any medication for many months. He wasn't hyperosmolar or in DKA upon admission. Started Lantus 10 units SQ at night (03/06) and starting 15 units this morning. Also, he is getting SSI to cover for now. He expressed understanding that he needs to control his blood sugars in order to have a good result from surgery. He is willing to be on medication. (4) Hyponatremia Status: Acute Assessment & Plan: The sodium corrects to normal when correcting for hyperglycemia. (5) Lung nodule Assessment & Plan: CT did not show a RUL nodule that was seen on the CXR, but did show a LLL nodule. He does have past history of tobacco/substance abuse. He was notified of the CT findings. He will need a follow up CT of the chest in 6-12 months. Exam Sepsis Risk: No Definite Risk IQRA ROSADO MD Mar 08, 2018 11:06
[2018-03-08] MEDS: LEVOFLOXACIN/D5W*500 MG/100 ML 100 ML IVPB SCH (21:02)
[2018-03-08 22:14] VITALS: BP 148/92
[2018-03-09] MEDS: VANCOMYCIN(*) 1 GM VIAL 1 GM, VANCOMYCIN (*) 0.5 GM VIAL 0.5 GM in NS(*) 0.9% 250 ML BA... IVPB SCH (00:43)
[2018-03-09] MEDS: INSULIN HUM LISPRO 100 UN/ML 3 ML VIAL SUBQ PRN ×4 (08:04→21:38)
[2018-03-09] MEDS: INSULIN GLARGINE 100 U/ML 3 ML PEN SUBQ SCH ×2 (08:04→21:38)
--- NOTE | 2018-03-09 08:25 | General Surgery Progress Note ---
Subjective Progress Notes Subjective Very bitter and irritable this morning. I mentioned that his blood sugars are very elevated and we need to get them down before surgery. He angrily responds that how is he supposed to eat healthy when he only gets $200 a month in public assistance to eat. No other complaints this morning. Physical Exam Vital Signs Date Time Temp Pulse Resp B/P (MAP) Pulse Ox O2 Delivery O2 Flow Rate FiO2 03/08/18 22:14 99.5 16 148/92 (110) 94 Room Air 03/08/18 08:55 90 03/06/18 23:09 1.0 Intake and Output 03/09/18 07:00 Intake Total 2366 ml Output Total 2750 ml Balance -384 ml Intake Oral 1736 ml IV Total 630 ml Output Urine Total 2750 ml General Appearance: Alert, Awake, No Acute Distress, Afebrile Extremities: Other (Right BKA, well healed. Left great toe with distal wound but improved erythema and edema. Draining some purulent fluid.) Result Diagram: 03/07/18 0508 03/07/18 0508 Assessment and Plan Problems: (1) Toe infection Status: Acute Assessment & Plan: left great toe infection improving on abx xray shows likely osteo distal phalanx of left great toe cont abx wound care elevate extremity hospitalist consulted for med mgmnt amp of left great toe (no OR time until this evening so it will likely occur this weekend) 03/06/18 1155: I am assuming care from Dr. Hoover. In review of his chart and exam, I agree that it appears that he has osteomyelitis of the distal phalanx. He is also improving with current antibiotic regimen. His hyperglycemia is impr oving but persists. He would benefit from optimizing both the inflammatory/infectious process and hyperglycemia before proceeding with the amputation. So long as there is progress evident, I will postpone amputation. Discussed the plan with the patient and hospitalist service. 03/07/18: continue to medically optimize for expected amputation to create best environment for postoperative healing. 03/08/18: his toe is improved again some today. Glucose levels consistently in high 200s to 300s. Long acting insulin is added today. Recommend continuing optimization of medical care with anticipated amputation of great toe on Friday by Dr. Hoover. Timing the amputation with medical optimization is critical to keeping the amputation limited to his toe at this time. I have also addressed his complaints of being unable to sleep due to interruptions by requesting that his care be consolidated and VS to [facility]. 03/09/18: Continued improvement of cellulitis. Still with hyperglycemia...dis cussed with hospitalist this morning working on improving blood sugars to decrease risk of postop infection. Will make NPO after midnight tonight and will look at the OR schedule tomorrow for left great toe amputation. Will ask social work to see patient and discuss assistance he may be eligible for after discharge. (2) Diabetic foot ulcer with osteomyelitis Onset Date: ~ 02/25/2018 Status: Chronic Condition Stable. Time Spent: < 30 min Exam Sepsis Risk: No Definite Risk PENELOPE ROOT MD Mar 09, 2018 08:25
[2018-03-09 08:40] VITALS: BP 130/85
[2018-03-09] MEDS: DOCUSATE SODIUM 100 MG CAP PO SCH ×2 (08:44→21:37)
[2018-03-09] MEDS: VANCOMYCIN(*) 1 GM VIAL 1 GM, VANCOMYCIN (*) 0.5 GM VIAL 0.25 GM in NS(*) 0.9% 250 ML B... IVPB SCH ×2 (08:44→16:43)
[2018-03-09] MEDS: APAP/HYDROCODONE 325/7.5 TAB PO PRN ×3 (08:47→21:41)
--- NOTE | 2018-03-09 09:13 | Hospitalist Progress Note ---
Subjective Progress Notes Subjective He is very frustrated this morning. He doesn't want me in his room. Physical Exam Vital Signs Date Time Temp Pulse Resp B/P (MAP) Pulse Ox O2 Delivery O2 Flow Rate FiO2 03/09/18 08:40 97.8 92 16 130/85 (100) 93 Room Air 03/06/18 23:09 1.0 Intake and Output 03/09/18 07:00 Intake Total 2366 ml Output Total 2750 ml Balance -384 ml Intake Oral 1736 ml IV Total 630 ml Output Urine Total 2750 ml General Appearance: Alert, Awake, No Acute Distress, Afebrile Psych: Other (appears frustrated) Result Diagram: 03/07/18 0508 03/07/18 0508 Assessment and Plan Problems: (1) Pre-op evaluation Status: Acute Assessment & Plan: The patient has a low to moderate risk of pulmonary complications secondary to a remote smoking history and has a low to moderate risk cardiac complications secondary to uncontrolled diabetes, and a remote smoking history. He has no worrisome symptoms or physical exam findings. ECG and CXR performed. He will use incentive spirometry for atelectasis seen on chest x-ray. He has low to moderate risk of bleeding secondary to Excedrin (which has ASA) 03/05. (2) Diabetic foot ulcer Status: Chronic Assessment & Plan: Left great toe with cellulitis extending into the foot. Dr. Hoover is managing the Vancomycin/Levofloxacin, which should provide good coverage. He doesn't appear toxic. WBC is in normal range. He is afebrile and his BP is controlled. (3) Hyperglycemia due to type 2 diabetes mellitus Status: Acute Assessment & Plan: He presented with glucose levels in the 400's. He hadn't taken any medication for many months. He wasn't hyperosmolar or in DKA upon admission. Started Lantus 10 units SQ at night (03/06) and starting 15 units 03/08. Also, he is getting SSI to cover for now. He expressed understanding that he needs to control his blood sugars in order to have a good result from surgery. He is willing to be on medication. (4) Hyponatremia Status: Acute Assessment & Plan: The sodium corrects to normal when correcting for hyperglycemia. (5) Lung nodule Assessment & Plan: CT did not show a RUL nodule that was seen on the CXR, but did show a LLL nodule. He does have past history of tobacco/substance abuse. He was notified of the CT findings. He will need a follow up CT of the chest in 6-12 months. Exam Sepsis Risk: No Definite Risk BRAULIO AYERS [employer] ATT[employer]ER Mar 09, 2018 09:13
[2018-03-09 21:18] VITALS: BP 143/105
[2018-03-09] MEDS: LEVOFLOXACIN/D5W*500 MG/100 ML 100 ML IVPB SCH (21:37)
[2018-03-10] VITALS (11 sets, daily range): BP systolic 106–134; BP diastolic 70–98
[2018-03-10] MEDS: VANCOMYCIN(*) 1 GM VIAL 1 GM, VANCOMYCIN (*) 0.5 GM VIAL 0.25 GM in NS(*) 0.9% 250 ML B... IVPB SCH ×3 (00:45→17:23)
[2018-03-10 05:31] LABS: PLATELET COUNT, AUTOMATED 285 K/uL (150-450)
[2018-03-10] MEDS ORDERED: FAMOTIDINE(*) 20MG/50ML PREMIX 50 ML IVPB ONE (05:40)
[2018-03-10] MEDS ORDERED: NORMOSOL R SOLN(*) 1000 ML BAG 1,000 ML IV ONE (05:40)
--- NOTE | 2018-03-10 06:29 | General Surgery Progress Note ---
Subjective Progress Notes Subjective No new complaints this morning. Physical Exam Vital Signs Date Time Temp Pulse Resp B/P (MAP) Pulse Ox O2 Delivery O2 Flow Rate FiO2 03/09/18 21:30 91 Room Air 03/09/18 21:18 97.6 94 16 143/105 (118) 03/06/18 23:09 1.0 Intake and Output 03/10/18 06:59 Intake Total 3120 ml Output Total 2480 ml Balance 640 ml Intake Oral 1920 ml IV Total 1200 ml Output Urine Total 2480 ml # Bowel Movements 1 General Appearance: Alert, Awake, No Acute Distress, Afebrile Extremities: Other (Left foot dressing in place, C/D/I, I didn't remove it since he's going to surgery this morning.) Result Diagram: 03/10/1851103/10/18511 Assessment and Plan Problems: (1) Toe infection Status: Acute Assessment & Plan: left great toe infection improving on abx xray shows likely osteo distal phalanx of left great toe cont abx wound care elevate extremity hospitalist consulted for med mgmnt amp of left great toe (no OR time until this evening so it will likely occur this weekend) 03/06/18 1155: I am assuming care from Dr. Hoover. In review of his chart and exam, I agree that it appears that he has osteomyelitis of the distal phalanx. He is also improving with current antibiotic regimen. His hyperglycemia is improving but persists. He would benefit from optimizing both the inflammatory/infectious process and hyperglycemia before proceeding with the amputation. So long as there is progress evident, I will postpone amputation. Discussed the plan with the patient and hospitalist service. 03/07/18: continue to medically optimize for expected amputation to create best environment for postoperative healing. 03/08/18: his toe is improved again some today. Glucose levels consistently in high 200s to 300s. Long acting insulin is added today. Recommend continuing o ptimization of medical care with anticipated amputation of great toe on Friday by Dr. Hoover. Timing the amputation with medical optimization is critical to keeping the amputation limited to his toe at this time. I have also addressed his complaints of being unable to sleep due to interruptions by requesting that his care be consolidated and VS to [facility]. 03/09/18: Continued improvement of cellulitis. Still with hyperglycemia...discussed with hospitalist this morning working on improving b lood sugars to decrease risk of postop infection. Will make NPO after midnight tonight and will look at the OR schedule tomorrow for left great toe amputation. Will ask social work to see patient and discuss assistance he may be eligible for after discharge. 03/10/18: No changes. To OR this morning for left great toe amputation. Pt agreeable with proceeding with this surgery. (2) Diabetic foot ulcer with osteomyelitis Onset Date: ~ 02/25/2018 Status: Chronic Condition Stable. Time Spent: < 30 min Exam Sepsis Risk: No Definite Risk PENELOPE ROOT MD Mar 10, 2018 06:29
--- NOTE | 2018-03-10 08:37 | Pharmacy Note ---
Pharmacy Note Note: Vanco trough ordered for 03/10/18 at 0700. Last dose was given at 0045 and level was done using the 0500 lab draw sample because patient refused 0700 draw. Level returned as 24.79 which is a false elevation due to the short time between dose and draw. Continue the dose at 1.25G every 8 hours at this point. PUNEET MITCHELL Mar 10, 2018 08:37
[2018-03-10] MEDS: DOCUSATE SODIUM 100 MG CAP PO SCH ×2 (09:00→21:00)
--- NOTE | 2018-03-10 09:19 | Hospitalist Progress Note ---
Subjective Progress Notes Subjective He has no complaints this morning. He had no acute events overnight. Patient Complains of: Cardiovascular: No: Chest Pain Respiratory: No: Shortness of Breath Physical Exam Vital Signs Date Time Temp Pulse Resp B/P (MAP) Pulse Ox O2 Delivery O2 Flow Rate FiO2 03/10/18 08:47 99.1 88 16 134/93 (107) 89 Room Air 03/06/18 23:09 1.0 Intake and Output 03/10/18 00:00 Intake Total 2815 ml Output Total 2050 ml Balance 765 ml Intake Oral 1920 ml IV Total 895 ml Output Urine Total 2050 ml # Bowel Movements 1 General Appearance: Alert, Awake, No Acute Distress, Afebrile Neuro: No Gross deficits Cardiovascular: Regular Rate and Rhythm Respiratory: No Respiratory Distress, Clear to Auscultation GI: Soft and Non-Tender Psych: Alert & Oriented X3 Result Diagram: 03/10/1851103/10/18511 Assessment and Plan Problems: (1) Pre-op evaluation Status: Acute Assessment & Plan: The patient has a low to moderate risk of pulmonary complications secondary to a remote smoking history and has a low to moderate risk cardiac complications secondary to uncontrolled diabetes, and a remote smoking history. He has no worrisome symptoms or physical exam findings. ECG and CXR performed. He will use incentive spirometry for atelectasis seen on chest x-ray. He has low to moderate risk of bleeding secondary to Excedrin (which has ASA) 03/05. (2) Diabetic foot ulcer Status: Chronic Assessment & Plan: Left great toe with cellulitis extending into the foot. Dr. Hoover is managing the Vancomycin/Levofloxacin, which should provide good coverage. He doesn't appear toxic. WBC is in normal range. He is afebrile and his BP is controlled. He will have amputation of toe today. (3) Hyperglycemia due to type 2 diabetes mellitus Status: Acute Assessment & Plan: He presented with glucose levels in the 400's. He hadn't taken any medication for many months. He wasn't hyperosmolar or in DKA upon admission. Started Lantus 10 units SQ at night (03/06) and starting 15 units 03/08. Also, he is getting SSI to cover for now. He expressed understanding that he needs to control his blood sugars in order to have a good result from surgery. He is willing to be on medication. We will hold insulin this morning, secondary to NPO status. (4) Hyponatremia Status: Acute Assessment & Plan: The sodium corrects to normal when correcting for hyperglycemia. (5) Lung nodule Assessment & Plan: CT did not show a RUL nodule that was seen on the CXR, but did show a LLL nodule. He does have past history of tobacco/substance abuse. He was notified of the CT findings. He will need a follow up CT of the chest in 6-12 months. Exam Sepsis Risk: No Definite Risk BRAULIO AYERS GLUE SPRAYER Mar 10, 2018 09:19
[2018-03-10] MEDS ORDERED: LIDOCAINE/SOD BICARB 8.4% SYR ID ONE (09:25)
[2018-03-10] MEDS ORDERED: DEXAMETHASONE SOD PHOS 10MG/ML ONE (09:54)
[2018-03-10] MEDS ORDERED: ONDANSETRON 4 MG/2 ML VIAL ONE (09:54)
[2018-03-10] MEDS ORDERED: PROPOFOL EMUL(*) 10MG/ML 20 ML 20 ML ONE (09:54)
[2018-03-10] MEDS ORDERED: MIDAZOLAM 2 MG/2 ML VIAL ONE (09:55)
[2018-03-10] MEDS ORDERED: ROPIVACAINE 0.5% 20 ML VIAL ONE ×2 (09:55→10:43)
[2018-03-10] MEDS ORDERED: NEOMYCIN/POLYMYX/BACITR 30 GM TP ONE (09:55)
--- NOTE | 2018-03-10 11:24 | Post Operative Progress Note ---
Post Operative Progress Note Date: Mar 10, 2018 Time: 11:19 Surgeon: Kaykay Dictation number: [id number] Anesthesia: LMA by Dr. Arenas Pre-Op Diagnosis: Left great toe diabetic ulcer with osteomyelitis in distal phalanx Post-Op Diagnosis: LOVELY Findings: C/W dx Procedure(s): Left great toe amputation through proximal phalanx Specimen Removed:(May be N/A): Left great toe Complications: None Fluids: See anesthesia record Estimated Blood Loss: Minimal Date OP Note Dictated: Mar 10, 2018 Time OP Note Dictated: 11:20 PENELOPE ROOT MD Mar 10, 2018 11:24
--- NOTE | 2018-03-10 12:34 | OPERATIVE REPORT 1 ---
EVENT DATE: March 10, 2018 SURGEON: Leeroy Mccracken M.D. ANESTHESIOLOGIST: Tommy Arenas M.D. ANESTHESIA: LMA. PREOPERATIVE DIAGNOSIS Left great toe diabetic ulcer with osteomyelitis in the distal phalanx. POSTOPERATIVE DIAGNOSIS Left great toe diabetic ulcer with osteomyelitis in the distal phalanx. PROCEDURE PERFORMED Left great toe amputation through the proximal phalanx. COMPLICATIONS None. CONDITION Stable. ESTIMATED BLOOD LOSS Minimal. INDICATIONS Patient is a 57-year-old poorly controlled diabetic whom I have taken care of in the past and, in fact, I have amputated a couple of toes on his right foot but ultimately he required a [id number] amputation. He had apparently been doing fairly well as I have not seen him for a couple of years but he developed a wound on his left great toe and came in to see his PCM, who was concerned about cellulitis and so consulted the surgeons and Dr. Hoover admitted him to the hospital and started him on IV antibiotics. An x-ray is consistent with osteomyelitis in the distal phalanx. He was kept on IV antibiotics until the cellulitis improved and his blood sugar control was improved and then he was consented for a left great toe amputation. DESCRIPTION OF PROCEDURE The patient was brought to the operating room and placed supine on the operating table. LMA anesthesia was administered and his left foot and toes were prepped and draped in sterile fashion. A time-out was completed and I injected the great toe in a ring block with 0.5% ropivacaine plain. He had also gotten a regional block performed by Dr. Arenas. I then marked the skin proximal to the ulcerations but still leaving enough skin to cover the amputation site. I then used the #15 blade and made an incision in the skin in a fish-mouth type configuration all the way down through all the soft tissues down to bone. I then went right through the interphalangeal joint and then the distal toe and passed it off the field. I then used a periosteal elevator to separate the soft tissues away from the proximal phalanx and then divided the proximal phalanx with the bone cutter and removed this and passed it off the field and sent it with the specimen. I used a rongeur and debrided the exposed bone and got rid of any sharp shards. I irrigated and dried the wound and reapproximated the soft tissues including the flexor and extensor tendons with interrupted 3-0 Vicryl sutures. The skin was closed with interrupted 2-0 Nylon sutures. The skin was cleaned and dried and Bacitracin was applied to the incision followed by Xeroform gauze and 4x4 gauze and then I wrapped his foot and ankle with Kerlix and an Sai wrap. He was then awakened, LMA removed and he was transported to the recovery room in stable condition, having tolerated the procedure without any apparent problems. ALYSE
[2018-03-10] MEDS: INSULIN HUM LISPRO 100 UN/ML 3 ML VIAL SUBQ PRN ×2 (17:23→21:14)
[2018-03-10] MEDS: APAP/HYDROCODONE 325/7.5 TAB PO PRN ×2 (17:43→21:42)
[2018-03-10] MEDS: INSULIN GLARGINE 100 U/ML 3 ML PEN SUBQ SCH (21:14)
[2018-03-10] MEDS: LEVOFLOXACIN/D5W*500 MG/100 ML 100 ML IVPB SCH (21:21)
[2018-03-11] MEDS ORDERED: VANCOMYCIN(*) 1 GM VIAL 1 GM, VANCOMYCIN (*) 0.5 GM VIAL 0.25 GM in NS(*) 0.9% 250 ML B... IVPB SCH (01:30)
[2018-03-11] MEDS: APAP/HYDROCODONE 325/7.5 TAB PO PRN (03:19)
[2018-03-11] MEDS ORDERED: DOCU-416 PO (06:19)
[2018-03-11] MEDS ORDERED: LEVO-85 PO (06:19)
[2018-03-11] MEDS ORDERED: Acetaminophen/Hydrocodone PO (06:19)
--- NOTE | 2018-03-11 06:23 | Short(Outpt) Discharge Summary ---
Discharge Summary Reason for Hosp/Final Diag: (1) Toe infection Status: Acute Hospital Course & Plan: left great toe infection improving on abx xray shows likely osteo distal phalanx of left great toe cont abx wound care elevate extremity hospitalist consulted for med mgmnt amp of left great toe (no OR time until this evening so it will likely occur this weekend) 03/06/18 1155: I am assuming care from Dr. Hoover. In review of his chart and exam, I agree that it appears that he has osteomyelitis of the distal phalanx. He is also improving with current antibiotic regimen. His hyperglycemia is improving but persists. He would benefit from optimizing both the inflammatory/infectious process and hyperglycemia before proceeding with the amputation. So long as there is progress evident, I will postpone amputation. Discussed the plan with the patient and hospitalist service. 03/07/18: continue to medically optimize for expected amputation to create best environment for postoperative healing. 03/08/18: his toe is improved again some today. Glucose levels consistently in high 200s to 300s. Long acting insulin is added today. Recommend continuing optimization of medical care with anticipated amputation of great toe on Friday by Dr. Hoover. Timing the amputation with medical optimization is critical to keeping the amputation limited to his toe at this time. I have also addressed his complaints of being unable to sleep due to interruptions by requesting that his care be consolidated and VS to [facility]. 03/09/18: Continued improvement of cellulitis. Still with hyperglycemia...discussed with hospitalist this morning working on improving blood sugars to decrease risk of postop infection. Will make NPO after midnight tonight and will look at the OR schedule tomorrow for left great toe amputation. Will ask social work to see patient and discuss assistance he may be eligible for after discharge. 03/10/18: No changes. To OR this morning for left great toe amputation. Pt agreeable with proceeding with this surgery. 03/11/18: POD#1 s/p left great toe amputation through proximal phalanx. No complaints this morning. He's very anxious to be discharged. Will d/c to home with o/p f/u. (2) Diabetic foot ulcer with osteomyelitis Onset Date: ~ 02/25/2018 Status: Chronic Departure Discharge to: Home, Self Care Discharge Instructions Home Meds Active Scripts Docusate Sodium (COLACE) 100 Mg Capsule, 1 CAP PO BID, #30 CAP 0 Refills TAKE WITH A FULL GLASS OF WATER Prov:PENELOPE MCCRACKEN MD 03/11/18 Levofloxacin 500 Mg Tab (LEVAQUIN 500 MG TAB) 500 Mg Tablet, 1 TAB PO QDAY, #10 TAB 0 Refills Prov:PENELOPE MCCRACKEN MD 03/11/18 [Apap/Hydrocodone 325/7.5 Tab] 7.5 MG/325 MG TAB No Conflict Check, 1 TAB PO Q4H PRN for PAIN, #30 TAB 0 Refills Prov:PENELOPE MCCRACKEN MD 03/11/18 Follow up Referrals: General Surgery - 03/25/18 @ Surgery, General with PENELOPE MCCRACKEN MD You have a follow up appointment scheduled with Dr. Mccracken on 03/25/18, at 4:00pm. He's now at the new clinic [facility] to the hospital [place] [facility]. Diet: Diabetic Activity: As Tolerated Special Instructions: Remove the current dressing that's on your left foot on , 03/12/18, then you can shower. After showering, cover your left foot amputation site with a band-aid, or guaze and tape, and change the dressing daily until there's no further drainage. When there's no further drainage, you can leave the amputation site open to air. PENELOPE MCCRACKEN MD Mar 11, 2018 06:23
[2018-03-11 06:32] VITALS: BP 141/97
[2018-03-11 07:17] LABS: PLATELET COUNT, AUTOMATED 288 K/uL (150-450)
[2018-03-11] MEDS: LEVOFLOXACIN 500 MG TAB PO SCH ×3 (08:16→09:00)
[2018-03-11] MEDS: DOCUSATE SODIUM 100 MG CAP PO SCH (08:16)
[2018-03-11] MEDS: INSULIN HUM LISPRO 100 UN/ML 3 ML VIAL SUBQ PRN (08:18)
[2018-03-11] MEDS: INSULIN GLARGINE 100 U/ML 3 ML PEN SUBQ SCH (08:18)
[2018-03-11] MEDS ORDERED: INSU100I30 SUBQ (11:38)
--- NOTE | 2018-03-11 11:41 | Hospitalist Progress Note ---
Subjective Progress Notes Subjective 57M with Toe infection, now post operative. Doing well, discharge today. Patient Complains of: Gastrointestinal: No Nausea, No Vomiting Physical Exam Vital Signs Date Time Temp Pulse Resp B/P (MAP) Pulse Ox O2 Delivery O2 Flow Rate FiO2 03/11/18 10:25 92 Room Air 03/11/18 06:32 98.1 18 141/97 (112) 03/10/18 19:28 109 03/10/18 13:30 1.0 Intake and Output 03/11/18 07:00 Intake Total 2280 ml Output Total 1825 ml Balance 455 ml Intake Oral 240 ml IV Total 2040 ml Output Urine Total 1825 ml # Voids 1 # Bowel Movements 1 General Appearance: No Acute Distress, Afebrile Neuro: No Gross deficits Cardiovascular: Normal Rhythm & Peripheral Pulses Respiratory: No Respiratory Distress Result Diagram: 03/11/1854 03/11/18653 Assessment and Plan Problems: (1) Diabetic foot ulcer Status: Chronic Assessment & Plan: Left great toe with cellulitis extending into the foot. Dr. Hoover is managing the Vancomycin/Levofloxacin, which should provide good coverage. He doesn't appear toxic. WBC is in normal range. He is afebrile and his BP is controlled. He will have amputation of toe today. (2) Pre-op evaluation Status: Acute Assessment & Plan: The patient has a low to moderate risk of pulmonary complications secondary to a remote smoking history and has a low to moderate risk cardiac complications secondary to uncontrolled diabetes, and a remote smoking history. He has no worrisome symptoms or physical exam findings. ECG and CXR performed. He will use incentive spirometry for atelectasis seen on c hest x-ray. He has low to moderate risk of bleeding secondary to Excedrin (which has ASA) 03/05. (3) Hyperglycemia due to type 2 diabetes mellitus Status: Acute Assessment & Plan: He presented with glucose levels in the 400's. He hadn't taken any medication for many months. He wasn't hyperosmolar or in DKA upon admission. Started Lantus 10 units SQ at night (03/06) and starting 15 units 03/08. He expressed understanding that he needs to control his blood sugars in order to have a good result from surgery. Discharge with Lantus 15U in am and 10U at night, needs follow up to monitor and adjust insulin regimen. (4) Hyponatremia Status: Acute Assessment & Plan: The sodium corrects to normal when correcting for hyperglycemia. (5) Lung nodule Assessment & Plan: CT did not show a RUL nodule that was seen on the CXR, but did show a LLL nodule. He does have past history of tobacco/substance abuse. He was notified of the CT findings. He will need a follow up CT of the chest in 6-12 months. Exam Sepsis Risk: No Definite Risk MONTERO MARY CARMEN COATES DO Mar 11, 2018 11:41
== END 2018-03-11 11:36 | disposition home or self-care (01) | DRG 504 ==
LOC: MED 14:47
PROVIDERS: ADMIT Surgery; ATTEND Surgery
PROC: 0Y6Q0Z1 Detachment at Left 1st Toe, High, Open Approach (ICD-10-PCS; principal; 2018-03-10 10:09)
DX: M86.9 Osteomyelitis, unspecified (principal); L03.116 Cellulitis of left lower limb; E87.1 Hypo-osmolality and hyponatremia; E11.69 Type 2 diabetes mellitus with other specified complication; E11.628 Type 2 diabetes mellitus with other skin complications; E11.65 Type 2 diabetes mellitus with hyperglycemia; E11.621 Type 2 diabetes mellitus with foot ulcer; R91.1 Solitary pulmonary nodule; E11.40 Type 2 diabetes mellitus with diabetic neuropathy, unspecified; I10 Essential (primary) hypertension; F41.8 Other specified anxiety disorders; K21.9 Gastro-esophageal reflux disease without esophagitis; L97.529 Non-pressure chronic ulcer of other part of left foot with unspecified severity; Z89.511 Acquired absence of right leg below knee; Z87.891 Personal history of nicotine dependence; Z91.14 Patient's other noncompliance with medication regimen
CPT/HCPCS: 36415; 36416; 71045; 71270; 76942; 80202; 82040; 82247; 82310; 82374; 82435; 82565; 82947; 82948; 83036; 84075; 84132; 84155; 84295; 84450; 84460; 84520; 85025; 85610; 88305; 88311; 93005; J1100; J1815; J1956; J2250; J2405; J2704; J2795; J3370; J3490; J7030; J7040; J7050; Q9967

== ENCOUNTER 2018-04-23 01:08 | Day surgery (SDC) | payer MEDICAID ==
[2018-03-06 09:38] VITALS: Ht 174 cm; Wt 73.5 kg
[2018-04-23] VITALS (8 sets, daily range): BP systolic 102–151; BP diastolic 83–101
[~2018-04-23] VITALS: Ht 174 cm; Wt 73.5 kg
[~2018-04-23 01:08] MED LIST changes: +Acetaminophen/Hydrocodone PO; +GLIP-152 PO; +HYDR-385 PO; +INSU100I30 SUBQ; +METR500T15 PO; -METR500T54 PO
[2018-04-23] MEDS ORDERED: DEXAMETHASONE SOD PHOS 10MG/ML ONE (07:06)
[2018-04-23] MEDS ORDERED: fentaNYL CITR 100 MCG/2 ML AMP ONE (07:06)
[2018-04-23] MEDS ORDERED: ONDANSETRON 4 MG/2 ML VIAL ONE (07:06)
[2018-04-23] MEDS ORDERED: LIDOCAINE MPF 1% 5 ML VIAL ONE (07:06)
[2018-04-23] MEDS ORDERED: PROPOFOL EMUL(*) 10MG/ML 20 ML 40 ML ONE (07:06)
[2018-04-23] MEDS ORDERED: PROPOFOL EMUL(*) 10MG/ML 20 ML 20 ML ONE (07:06)
[2018-04-23] MEDS ORDERED: KETAMINE HCL-NS 50 MG/5 ML SYR ONE (07:07)
[2018-04-23] MEDS ORDERED: NEOMYCIN/POLYMYX/BACITR 30 GM TP ONE (07:15)
[2018-04-23] MEDS ORDERED: ROPIVACAINE 0.5% 20 ML VIAL ONE (07:15)
[2018-04-23] MEDS ORDERED: NS 0.9% IRRIGATION 1000ML PLCT IR ONE (08:19)
[2018-04-23] MEDS ORDERED: OXYC-854 PO (08:57)
[2018-04-23] MEDS ORDERED: DOCU-416 PO (08:57)
--- NOTE | 2018-04-23 09:02 | Short(Outpt) Discharge Summary ---
Discharge Summary Reason for Hosp/Final Diag: (1) Diabetic foot ulcer Status: Chronic Hospital Course & Plan: Left 2nd toe amputation completed without problems. (2) Osteomyelitis of ankle or foot, right, acute Status: Resolved Departure Discharge to: Home, Self Care Discharge Instructions Home Meds Active Scripts Docusate Sodium (COLACE) 100 Mg Capsule, 1 CAP PO BID, #30 CAP 0 Refills TAKE WITH A FULL GLASS OF WATER Prov:PENELOPE ROOT MD 04/23/18 Oxycodone Hcl/Acet 5/325 Mg (ENDOCET 5-325 TABLET) 1 Each Tablet, 1 TAB PO Q4H PRN for PAIN, #30 TAB 0 Refills Prov:PENELOPE ROOT MD 04/23/18 Sulfamethoxazole/Trimet 800-160 Mg Tab (BACTRIM DS TABLET) 1 Each Tablet, 1 TAB PO Q12H, #30 TAB 0 Refills Prov:PENELOPE ROOT MD 04/20/18 Reported Medications Aspirin/Acetaminophen/Caffeine (EXCEDRIN EXTRA STRENGTH CAPLET) 1 Each Tablet, 1 EACH PO QDAY 04/20/18 Glipizide (GLIPIZIDE) 5 Mg Tablet, 5 MG PO QDAY 03/19/18 Discontinued Scripts Sulfamethoxazole/Trimet 800-160 Mg Tab (BACTRIM DS TABLET) 1 Each Tablet, 1 TAB PO Q12H, #20 TAB 0 Refills Prov:PENELOPE ROOT MD 04/07/18 Hydrocodone Bit/Acetaminophen (HYDROCODON-ACETAMINOPHEN 5-325) 1 Each Tablet, 1 TAB PO Q4H PRN for PAIN, #30 TAB 0 Refills Prov:PENELOPE ROOT MD 04/07/18 Docusate Sodium (COLACE) 100 Mg Capsule, 1 CAP PO BID, #30 CAP 0 Refills TAKE WITH A FULL GLASS OF WATER Prov:PENELOPE ROOT MD 03/11/18 Follow up Referrals: General Surgery - 05/08/18 @ Surgery, General with PENELOPE ROOT MD You have a follow up appointment scheduled with Dr. Root on 05/08/18, at 2:30pm. Diet: Diabetic Activity: As Tolerated Special Instructions: Leave the dressing and wraps on until 04/26/18, then you can remove all of the dressings and then apply a band-aid over the 2nd toe stump and change this daily. You may start showering on 04/26/18, but don't immerse the incision for 2 weeks. Problem Qualifiers (1) Diabetic foot ulcer: Diabetic foot ulcer location: toe Diabetes mellitus type: type 2 Laterality: left Non-pressure ulcer stage: with necrosis of bone Qualified Codes: E11.621 - Type 2 diabetes mellitus with foot ulcer; L97.524 - Non-pressure chronic ulcer of other part of left foot with necrosis of bone PENELOPE ROOT MD Apr 23, 2018 09:02
--- NOTE | 2018-04-23 09:08 | Post Operative Progress Note ---
Post Operative Progress Note Date: Apr 23, 2018 Time: 09:02 Surgeon: Kaykay Dictation number: [id number] Anesthesia: LMA by Dr. Mancilla Pre-Op Diagnosis: Left 2nd toe diabetic ulcer with osteomyelitis in distal phalanx Post-Op Diagnosis: LOVELY Findings: C/W dx Procedure(s): Left 2nd toe amputation through proximal phalanx Specimen Removed:(May be N/A): Left 2nd toe Complications: None Total Tourniquet Time: None Splint: None Fluids: See anesthesia record Estimated Blood Loss: Minimal Date OP Note Dictated: Apr 23, 2018 Time OP Note Dictated: 09:04 PENELOPE ROOT MD Apr 23, 2018 09:08
--- NOTE | 2018-04-23 10:02 | OPERATIVE REPORT 1 ---
EVENT DATE: April 23, 2018 SURGEON: Leeroy Mccracken MD ANESTHESIOLOGIST: Chester Mancilla MD ANESTHESIA: LMA PREOPERATIVE DIAGNOSIS Left second toe diabetic ulcer with osteomyelitis in the distal phalanx. POSTOPERATIVE DIAGNOSIS Left second toe diabetic ulcer with osteomyelitis in the distal phalanx. PROCEDURE PERFORMED Left second toe amputation through the proximal phalanx. COMPLICATIONS None. CONDITION Stable. ESTIMATED BLOOD LOSS Minimal. INDICATIONS This is a 57-year-old gentleman with poorly controlled diabetes who has had several toe amputations and ultimately a right below knee amputation in the past and even a month ago, I amputated his left great toe and then subsequently he developed an ulcer on the distal portion of the second toe and then it has evolved into osteomyelitis. DESCRIPTION OF PROCEDURE The patient was brought to the operating room and placed supine on the operating table. LMA anesthesia was administered and his left foot and ankle were prepped and draped in sterile fashion. A timeout was completed and I marked the skin on the toe and anesthetized the toe in a digital block fashion with 0.5% Ropivacaine plan and then made a fishmouth type incision on the second toe. I preserved as much skin and soft tissues as I could. I dissected completely through the soft tissues and went through the joint between the proximal phalanges of his second toe and then removed the distal portion of the toe. I then changed to new gloves since the distal toe was infected, and then irrigated and dried the wound, made sure it was hemostatic and then used a periosteal elevator, the soft tissues from the proximal phalanx and then cut the proximal phalanx mid-shaft and then removed the distal portion of the proximal phalanx and passed it off the field. I then again irrigated and dried the wound, made sure it was hemostatic and then closed the soft tissues as well as the flexor and extensor tendons, overlying the divided bone with interrupted 3-0 Vicryl sutures and the skin was closed with interrupted 2-0 Nylon sutures. The skin was cleaned, dried and I applied antibiotic ointment to the incision and sutures, followed by a Xeroform and then covered it with 4 x 4 gauze, wrapped his foot and ankle with a Kerlix and then an junaid wrap. The patient was then awakened and LMA removed. He was transported to the recovery room in stable condition having tolerated the procedure without any apparent problems. ALYSE
[2018-04-23] MEDS ORDERED: FAMOTIDINE 20 MG TAB PO ONE (13:45)
[2018-04-23] MEDS ORDERED: MIDAZOLAM 2 MG/2 ML VIAL IVP PRN (13:45)
[2018-04-23] MEDS ORDERED: LEVOFLOXACIN/D5W*500 MG/100 ML 100 ML IVPB ONE (13:45)
[2018-04-23] MEDS ORDERED: LIDOCAINE/SOD BICARB 8.4% SYR ID ONE (13:45)
[2018-04-23] MEDS ORDERED: NORMOSOL R SOLN(*) 1000 ML BAG 1,000 ML IV PRN (13:45)
== END 2018-04-23 09:15 | disposition home or self-care (01) ==
LOC: OR 01:08
PROVIDERS: ATTEND Surgery
DX: E11.69 Type 2 diabetes mellitus with other specified complication (principal); E11.621 Type 2 diabetes mellitus with foot ulcer; L97.524 Non-pressure chronic ulcer of other part of left foot with necrosis of bone; E11.65 Type 2 diabetes mellitus with hyperglycemia; M86.9 Osteomyelitis, unspecified; Z79.84 Long term (current) use of oral hypoglycemic drugs
CPT/HCPCS: 28160; 36416; 82948; 88305; 88311; J1100; J1956; J2001; J2250; J2405; J2704; J2795; J3010; J3490

== ENCOUNTER 2018-08-27 20:30 | Emergency (ER) | payer MEDICAID ==
[2018-03-06 09:38] VITALS: Wt 80.7 kg
--- NOTE | 2018-08-27 20:39 | ER Report ---
History and Physical Time Seen By MD: 20:38 HPI/ROS CHIEF COMPLAINT: Left 3rd toe complication HISTORY OF PRESENT ILLNESS: Patient is a 57-year-old male here with complaints of left 3rd toe partial amputation while in the bathtub today. Patient reports that he has been seen in the outpatient wound clinic for several months for distal toe infections which have been stable. Last visit was several weeks ago which time there is no drainage, bleeding or tissue loss. Patient reports that the distal tip of the 3rd digit fell off while in the tub with subsequent bleeding. There is apparent bone exposure at time of evaluation. Patient does report swelling in the extremity for the past several days which reportedly is improving with elevation of the extremity. REVIEW OF SYSTEMS: Constitutional: No fever, no chills. Eyes: No discharge. ENT: No sore throat. Cardiovascular: No chest pain, no palpitations. Respiratory: No cough, no shortness of breath. Gastrointestinal: No abdominal pain, no vomiting. Genitourinary: No hematuria. Musculoskeletal: Left distal 3rd toe partial amputation Skin: No rashes. Neurological: No headache. Allergies: Coded Allergies: penicillin G (Verified Allergy, Severe, RASH, 04/20/18) tramadol (Verified Adverse Reaction, Mild, Headache, 04/20/18) Uncoded Allergies: STRAWBERRIES (Allergy, Unknown, HIVES, 10/24/13) Home Meds Active Scripts Oxycodone Hcl/Acet 5/325 Mg (ENDOCET 5-325 TABLET) 1 Each Tablet, 1 TAB PO TID PRN for PAIN, #12 TAB 0 Refills Prov:PENELOPE ROOT MD 05/08/18 Docusate Sodium (COLACE) 100 Mg Capsule, 1 CAP PO BID, #30 CAP 0 Refills TAKE WITH A FULL GLASS OF WATER Prov:PENELOPE ROOT MD 04/23/18 Sulfamethoxazole/Trimet 800-160 Mg Tab (BACTRIM DS TABLET) 1 Each Tablet, 1 TAB PO Q12H, #30 TAB 0 Refills Prov:PENELOPE ROOT MD 04/20/18 Reported Medications Aspirin/Acetaminophen/Caffeine (EXCEDRIN EXTRA STRENGTH CAPLET) 1 Each Tablet, 1 EACH PO QDAY 04/20/18 Glipizide (GLIPIZIDE) 5 Mg Tablet, 5 MG PO QDAY 03/19/18 Hx Smoking: Yes ("4/YEAR") Smoking Status: Light Tobacco Smoker Exposure to Second Hand Smoke?: Yes Hx Substance Use Disorder: Yes (MARiJUANA ) Hx Alcohol Use: Yes Constitutional Vital Sign - Last 24 Hours 08/27/18 08/27/18 08/27/18 08/27/18 20:40 20:41 21:00 21:30 Temp 98.8 Pulse 110 124 Resp 20 B/P (MAP) 157/120 (132) 157/120 118/105 (109) 150/104 (119) Pulse Ox 100 82 O2 Delivery Room Air Physical Exam General Appearance: The patient is alert, has no immediate need for airway protection and no signs of toxicity. Anxious appearing Eyes: Pupils equal and round no pallor or injection. ENT, Mouth: Mucous membranes are moist. Respiratory: There are no retractions, lungs are clear to auscultation. Cardiovascular: Regular rate and rhythm. Gastrointestinal: Abdomen is soft and non tender, no masses, bowel sounds normal. Neurological: Baseline diabetic neuropathy in distal extremity, no other focal neurological findings on exam Skin: Warm and dry, no rashes. Musculoskeletal: Exposed left 3rd digit of bone, no significant erythema or drainage at this time DIFFERENTIAL DIAGNOSIS: After history and physical exam differential diagnosis was considered for necrosis, amputation, diabetic foot infection, neuropathy Medical Decision Making Data Points Result Diagram: 08/27/18220108/27/182201 Laboratory Hematology Test 08/27/18 22:02 Red Blood Count 4.97 M/uL (4.00-5.60) Mean Corpuscular Volume 81.5 fL (80.0-96.0) Mean Corpuscular Hemoglobin 28.2 pg (26.0-33.0) Mean Corpuscular Hemoglobin Concent 34.6 g/dL (32.0-36.0) Red Cell Distribution Width 13.7 % (11.5-14.5) Mean Platelet Volume 7.7 fL (7.2-11.1) Neutrophils (%) (Auto) 62.3 % (39.4-72.5) Lymphocytes (%) (Auto) 15.3 % (17.6-49.6) Monocytes (%) (Auto) 16.5 % (4.1-12.4) Eosinophils (%) (Auto) 3.8 % (0.4-6.7) Basophils (%) (Auto) 2.1 % (0.3-1.4) Nucleated RBC Relative Count (auto) 0.0 /100WBC Neutrophils # (Auto) 3.0 K/uL (2.0-7.4) Lymphocytes # (Auto) 0.7 K/uL (1.3-3.6) Monocytes # (Auto) 0.8 K/uL (0.3-1.0) Eosinophils # (Auto) 0.2 K/uL (0.0-0.5) Basophils # (Auto) 0.1 K/uL (0.0-0.1) Nucleated RBC Absolute Count (auto) 0.00 K/uL Sodium Level 137 mmol/L (137-145) Potassium Level 3.5 mmol/L (3.5-5.0) Chloride Level 100 mmol/L (98-107) Carbon Dioxide Level 26 mmol/L (22-30) Blood Urea Nitrogen 13 mg/dl (9-21) Creatinine 0.80 mg/dl (0.66-1.25) Glomerular Filtration Rate Calc > 60.0 Random Glucose 309 mg/dl (75-110) Calcium Level 8.6 mg/dl (8.4-10.2) Total Bilirubin 0.5 mg/dl (0.2-1.3) Aspartate Amino Transf (AST/SGOT) 18 U/L (0-35) Alanine Aminotransferase (ALT/SGPT) 21 U/L (0-56) Alkaline Phosphatase 199 U/L (0-126) Total Protein 6.5 g/dl (6.3-8.2) Albumin 3.3 g/dl (3.5-5.0) Chemistry Test 08/27/18 22:02 White Blood Count 4.8 k/uL (4.5-11.0) Red Blood Count 4.97 M/uL (4.00-5.60) Hemoglobin 14.0 g/dL (14.0-18.0) Hematocrit 40.6 % (42.0-52.0) Mean Corpuscular Volume 81.5 fL (80.0-96.0) Mean Corpuscular Hemoglobin 28.2 pg (26.0-33.0) Mean Corpuscular Hemoglobin Concent 34.6 g/dL (32.0-36.0) Red Cell Distribution Width 13.7 % (11.5-14.5) Platelet Count 173 K/uL (150-450) Mean Platelet Volume 7.7 fL (7.2-11.1) Neutrophils (%) (Auto) 62.3 % (39.4-72.5) Lymphocytes (%) (Auto) 15.3 % (17.6-49.6) Monocytes (%) (Auto) 16.5 % (4.1-12.4) Eosinophils (%) (Auto) 3.8 % (0.4-6.7) Basophils (%) (Auto) 2.1 % (0.3-1.4) Nucleated RBC Relative Count (auto) 0.0 /100WBC Neutrophils # (Auto) 3.0 K/uL (2.0-7.4) Lymphocytes # (Auto) 0.7 K/uL (1.3-3.6) Monocytes # (Auto) 0.8 K/uL (0.3-1.0) Eosinophils # (Auto) 0.2 K/uL (0.0-0.5) Basophils # (Auto) 0.1 K/uL (0.0-0.1) Nucleated RBC Absolute Count (auto) 0.00 K/uL Glomerular Filtration Rate Calc > 60.0 Calcium Level 8.6 mg/dl (8.4-10.2) Total Bilirubin 0.5 mg/dl (0.2-1.3) Aspartate Amino Transf (AST/SGOT) 18 U/L (0-35) Alanine Aminotransferase (ALT/SGPT) 21 U/L (0-56) Alkaline Phosphatase 199 U/L (0-126) Total Protein 6.5 g/dl (6.3-8.2) Albumin 3.3 g/dl (3.5-5.0) EKG/Imaging Imaging PATIENT NAME: Hamlet Hall : 1960 MR: [id number] V: [id number] EXAM DATE: ORDERING PHYSICIAN: DONNA QUARLES TECHNOLOG[place] [facility] [place] : 1960 Visit/Account:[id number] Date of Sevice: 08/27/2018 EXAMINATION: Left foot 3 views HISTORY: Infection. COMPARISON: 03/05/2018. FINDINGS: Since the prior exam there has been presumed amputation of the left first toe at the level of the proximal shaft of the proximal phalanx. There has also been amputation of the second toe at the level of the distal shaft of the proximal phalanx. No other new osseous findings in the left foot. Soft tissue swelling along the left third toe. Bones of the third toe demonstrate normal alignment without new fracture, dislocation, or radiographic evidence of osteomyelitis. Additional soft tissue swelling throughout the left foot. Vascular calcifications. IMPRESSION: 1. Soft tissue swelling along the left third toe. No radiographic evidence of osteomyelitis in the third toe. If there is persistent clinical concern for osteomyelitis, MRI would be more sensitive for further evaluation. 2. Partial amputation of the left first and second toes since the prior exam. Report Dictated By: Solo Reid MD at 08/27/2018 10:03 PM ED Course/Re-evaluation ED Course Patient is a 57-year-old male here with complaints of left distal 3rd toe partial amputation while in the bath today. Patient reported significant bleeding prior to arrival. Hemostasis has been achieved. Patient had been followed in the outpatient wound clinic and during his last visit, distal 3rd toe was well-appearing.. Patient is well-appearing at time of evaluation, afebrile, moderate pitting edema of the extremity. Labs were unremarkable, x-ray imaging showed no acute signs of osteomyelitis. Since the bone seems to be exposed through the distal end of the digit remaining, I discussed the patient with Dr. Hoover who is solution designer of surgery. Dr. Hoover will evaluate the patient in clinic tomorrow. The open wound was dressed with bacitracin and a sterile dressing, I updated the patient regarding the plan and he voiced understanding. Patient was well-appearing at time of discharge. Return precautions provided. Decision to Disposition Date: August 27, 2018 Decision to Disposition Time: 22:38 Depart Departure Latest Vital Signs Vital Signs Date Time Temp Pulse Resp B/P (MAP) Pulse Ox O2 Delivery O2 Flow Rate FiO2 08/27/18 21:30 150/104 (119) 08/27/18 21:00 124 82 08/27/18 20:41 98.8 20 Room Air Impression: Primary Impression: Diabetic foot ulcer Condition: Improved Disposition: HOME OR SELF-CARE Referrals: ZENA RUIZ APRN (PCP) Patient Instructions: Diabetic Foot Ulcers (ED) Additional Instructions: Please follow-up tomorrow with Dr. Hoover in clinic for further evaluation of your foot ulcer. Please return promptly if you develop fevers, worsening pain, drainage, increased swelling. Please continue your medications as prescribed. Please keep the wound clean and dry. Please cover with sterile bandages. DONNA QUARLES DO August 27, 2018 20:39
[2018-08-27 21:30] VITALS: BP 150/104
[2018-08-27 22:11] LABS: PLATELET COUNT, AUTOMATED 173 K/uL (150-450)
--- NOTE | 2018-08-27 22:11 | RADIOLOGY IMAGING REPORT ---
FACILITY: [facility] - [place] PATIENT NAME: Hamlet Hall : 1960 MR: [id number] V: [id number] EXAM DATE: ORDERING PHYSICIAN: DONNA QUARLES TECHNOLOGIST: Location: [facility] - [place] Patient: Hamlet Hall : 1960 Visit/Account:[id number] Date of Sevice: 08/27/2018 EXAMINATION: Left foot 3 views HISTORY: Infection. COMPARISON: 03/05/2018. FINDINGS: Since the prior exam there has been presumed amputation of the left first toe at the level of the pro ximal shaft of the proximal phalanx. There has also been amputation of the second toe at the level of the distal shaft of the proximal phalanx. No other new osseous findings in the left foot. Soft tissue swelling along the left third toe. Bones of the third toe demonstrate normal alignment wi thout new fracture, dislocation, or radiographic evidence of osteomyelitis. Additional soft tissue swelling throughout the left foot. Vascular calcifications. IMPRESSION: 1. Soft tissue swelling along the left third toe. No radiographic evidence of osteomyelitis in the th ird toe. If there is persistent clinical concern for osteomyelitis, MRI would be more sensitive for f urther evaluation. 2. Partial amputation of the left first and second toes since the prior exam. Report Dictated By: Solo Reid MD at 08/27/2018 10:03 PM Report E-Signed By: Solo Reid MD at 08/27/2018 10:07 PM WSN:[id number]
[2018-08-28] MEDS ORDERED: SULF-198 PO (12:20)
== END 2018-08-27 22:45 | disposition home or self-care (01) ==
LOC: ER 21:02
DX: E11.621 Type 2 diabetes mellitus with foot ulcer (principal); L97.529 Non-pressure chronic ulcer of other part of left foot with unspecified severity; S98.142A Partial traumatic amputation of one left lesser toe, initial encounter; F17.210 Nicotine dependence, cigarettes, uncomplicated; X58.XXXA Exposure to other specified factors, initial encounter; Z79.84 Long term (current) use of oral hypoglycemic drugs; Z79.899 Other long term (current) drug therapy
CPT/HCPCS: 36415; 82040; 82247; 82310; 82374; 82435; 82565; 82947; 84075; 84132; 84155; 84295; 84450; 84460; 84520; 85025; 99283

== ENCOUNTER 2018-09-02 01:28 | Day surgery (SDC) | payer MEDICAID ==
[2018-03-06 09:38] VITALS: Ht 172.7 cm; Wt 80.7 kg
[~2018-09-02] VITALS: Ht 172.7 cm; Wt 80.7 kg
[2018-09-02] MEDS ORDERED: MIDAZOLAM 2 MG/2 ML VIAL IVP PRN (06:00)
[2018-09-02] MEDS ORDERED: LEVOFLOXACIN/D5W*500 MG/100 ML 100 ML IVPB ONE (06:00)
[2018-09-02] MEDS ORDERED: VANCOMYCIN(*) 1 GM VIAL 1 GM, VANCOMYCIN (*) 0.5 GM VIAL 0.25 GM in NS(*) 0.9% 250 ML B... IVPB ONE (06:00)
[2018-09-02] MEDS ORDERED: FAMOTIDINE 20 MG TAB PO ONE (06:00)
[2018-09-02] MEDS ORDERED: LIDOCAINE/SOD BICARB 8.4% SYR ID ONE (06:00)
[2018-09-02 06:14] VITALS: BP 146/98
[2018-09-02] MEDS ORDERED: PROPOFOL EMUL(*) 10MG/ML 20 ML 40 ML ONE (06:22)
[2018-09-02] MEDS ORDERED: fentaNYL CITR 100 MCG/2 ML AMP ONE (06:24)
[2018-09-02] MEDS: NORMOSOL R SOLN(*) 1000 ML BAG 1,000 ML IV PRN ×2 (06:27→08:17)
--- NOTE | 2018-09-02 06:39 | EKG ---
FACILITY: [facility] PATIENT NAME: DONNIE COVARRUBIAS : [id number] MR: [id number] V: [id number] EXAM DATE: ORDERING PHYSICIAN: PENELOPE BOLDEN TECHNOLOGIST: DICKSON Watson Reason : PREOP-TOE Blood Pressure : / mmHG Vent. Rate : 098 BPM Atrial Rate : 098 BPM P-R Int : 196 ms QRS Dur : 098 ms QT Int : 364 ms P-R-T Axes : 044 -50 047 degrees QTc Int : 464 ms Normal sinus rhythm Left axis deviation Inferior infarct , age undetermined Abnormal ECG When compared with ECG of 05-MAR-2018 21:04, Inferior infarct is now present Confirmed by Roc Bailey ([id number]) on 09/03/2018 1:07:11 AM Referred By: KIMI Confirmed By:Roc Gonsalez
[2018-09-02] MEDS ORDERED: ROPIVACAINE 0.5% 20 ML VIAL ONE (06:42)
[2018-09-02] MEDS ORDERED: NEOMYCIN/POLYMYX/BACITR 30 GM TP ONE (06:42)
[2018-09-02] MEDS ORDERED: LIDOCAINE 1%MDV(*)200 MG/20 ML 0 ML ONE (06:42)
[2018-09-02] MEDS ORDERED: ONDANSETRON 4 MG/2 ML VIAL ONE (07:09)
[2018-09-02] MEDS ORDERED: OXYC-854 PO (07:52)
[2018-09-02] MEDS ORDERED: CLIN300C99 PO (07:52)
--- NOTE | 2018-09-02 07:56 | Short(Outpt) Discharge Summary ---
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 (2) Cellulitis of third toe of left foot Status: Chronic Departure Discharge to: Home, Self Care Discharge Instructions Home Meds Active Scripts Oxycodone Hcl/Acet 5/325 Mg (ENDOCET 5-325 TABLET) 1 Each Tablet, 1 TAB PO Q4H PRN for PAIN, #20 TAB 0 Refills Prov:PENELOPE ROOT MD 09/02/18 Clindamycin Hcl (CLINDAMYCIN HCL) 300 Mg Capsule, 1 CAP PO Q6H, #40 CAPSULE 0 Refills Prov:PENELPOE ROOT MD 09/02/18 Sulfamethoxazole/Trimet 800-160 Mg Tab (BACTRIM DS TABLET) 1 Each Tablet, 1 TAB PO Q12H, #30 TAB 0 Refills Prov:PENELOPE ROOT MD 08/28/18 Reported Medications Aspirin/Acetaminophen/Caffeine (EXCEDRIN EXTRA STRENGTH CAPLET) 1 Each Tablet, 1 EACH PO QDAY 04/20/18 Glipizide (GLIPIZIDE) 5 Mg Tablet, 5 MG PO QDAY 03/19/18 Discontinued Scripts Oxycodone Hcl/Acet 5/325 Mg (ENDOCET 5-325 TABLET) 1 Each Tablet, 1 TAB PO TID PRN for PAIN, #12 TAB 0 Refills Prov:PENELOPE ROOT MD 05/08/18 Docusate Sodium (COLACE) 100 Mg Capsule, 1 CAP PO BID, #30 CAP 0 Refills TAKE WITH A FULL GLASS OF WATER Prov:PENELOPE ROOT MD 04/23/18 Follow up Referrals: General Surgery - 09/09/18 @ Surgery, General with PENELOPE ROOT MD You have a follow up appointment scheduled with Dr. Root on 09/09/18, at 4:00pm. Diet: Diabetic Activity: As Tolerated Special Instructions: Leave the BUTCH wrap and dressings on until 09/05/18, then you can remove everything and shower AFTER the dressings are all removed. Do not immerse the incision for 1 month. You can apply antibiotic ointment (your choice) to the incision and cover the incision with a band-aid and change this once every day and when showering. Remove the band-aid for showering and replace it with a new one after you finish showering. Continue the bactrim antibiotic (trimethoprim/sulfamethoxazole) until you run out of pills. Start taking the clindamycin today and take 1 pill 4 times every day until you run out of these pills. PENELOPE ROOT MD Sep 02, 2018 07:56
--- NOTE | 2018-09-02 08:01 | Post Operative Progress Note ---
Post Operative Progress Note Date: Sep 02, 2018 Time: 07:57 Surgeon: Kaykay Dictation number: [id number] Anesthesia: LMA by Dr. Benjamin Pre-Op Diagnosis: Left 3rd toe diabetic ulcer with osteomyelitis and cellulitis Post-Op Diagnosis: LOVELY Findings: C/W dx Procedure(s): Left 3rd toe amputation Specimen Removed:(May be N/A): Left 3rd toe Complications: None Total Tourniquet Time: None Fluids: See anesthesia record Estimated Blood Loss: Minimal Date OP Note Dictated: Sep 02, 2018 Time OP Note Dictated: 07:58 PENELOPE ROOT MD Sep 02, 2018 08:01
[2018-09-02] MEDS ORDERED: INSU HUM REG 100 U/ML(ER ONLY) 10 ML VIAL SUBQ ONE (08:15)
--- NOTE | 2018-09-02 08:20 | OPERATIVE REPORT 1 ---
EVENT DATE: September 02, 2018 SURGEON: Leeroy Mccracken MD ANESTHESIOLOGIST: Leeroy Benjamin MD ANESTHESIA: LMA PREOPERATIVE DIAGNOSIS Left third toe diabetic ulcer with osteomyelitis and cellulitis. POSTOPERATIVE DIAGNOSIS Left third toe diabetic ulcer with osteomyelitis and cellulitis. PROCEDURE PERFORMED Left third toe amputation. COMPLICATIONS None. CONDITION Stable. ESTIMATED BLOOD LOSS Minimal. INDICATIONS This is a 57-year-old poorly controlled diabetic who has had multiple toes and even a right below-knee amputation in the past. His last toe amputation was about a month and a half to two months ago by myself and he started complaining a couple of weeks ago of a new sore on the distal tip of his third toe on his left foot and we managed it with wound care, but it has progressed and became very severe to the point of now the distal phalanx is exposed and he has developed significant erythema and swelling and he has not been improving on Bactrim. He is requesting to have the toe removed. DESCRIPTION OF PROCEDURE The patient was brought to the operating room and placed supine on the operating table. LMA anesthesia was administered and his left foot and ankle were prepped and draped in sterile fashion. A timeout was completed and I marked the skin on the foot to create a fish-mouth type skin flap and then anesthetized the toe in a digital ring block fashion with 0.5% ropivacaine plain. I then made an incision where I marked the skin and dissected through all of the soft tissues, down to the bone and then cut the bone with the bone cutter and removed the distal part of the toe. I then used a combination of sharp dissection and periosteal elevator to separate the soft tissues from the bone proximal to the proximal interphalangeal joint and then I divided the bone in the proximal phalanx in the distal shaft, just proximal to the joint and then passed this off the field. I irrigated and dried the wound and then reapproximated the flexor and extensor tendons over the bone with interrupted 3-0 Vicryl sutures and then closed the skin with interrupted 2-0 Nylon sutures. The skin was cleaned, dried and Bacitracin antibiotic ointment was applied to the incision, followed by a sterile band-aid and then his foot was wrapped in Kerlix and an junaid wrap. He was awakened and LMA removed, transported to the recovery room in stable condition having tolerated the procedure without any apparent problems. ALYSE
[2018-09-02 09:00] VITALS: BP 119/85
[2018-09-02 09:33] VITALS: BP 125/87
[2018-09-02 10:00] VITALS: BP 128/93
[2018-09-02 10:13] VITALS: BP 118/96
[2018-09-02 10:17] VITALS: BP 109/82
== END 2018-09-02 09:00 | disposition home or self-care (01) ==
LOC: OR 01:28
PROVIDERS: ATTEND Surgery
DX: L03.032 Cellulitis of left toe (principal); E11.621 Type 2 diabetes mellitus with foot ulcer; R94.31 Abnormal electrocardiogram [ECG] [EKG]
CPT/HCPCS: 28810; 36416; 82948; 88305; 88311; 93005; J1815; J1956; J2250; J2405; J2704; J2795; J3010; J3370; J7050; J2001

== ENCOUNTER 2018-10-17 15:03 | Observation (INO) | payer MEDICAID ==
[2018-03-06 09:38] VITALS: Ht 165.1 cm; Wt 79.5 kg
[~2018-10-17] VITALS: Ht 165.1 cm; Wt 79.5 kg
--- NOTE | 2018-10-17 15:40 | ER Report ---
History and Physical Time Seen By MD: 15:15 Hx. of Stated Complaint: patient injured finger about 5 days ago. does not remember what he did. thinks he may have burned it with a saws-all. Patient had dressing on it for 3 days but came in because it started to smell. puss and wound seen on left middle finger. HPI/ROS CHIEF COMPLAINT: injured finger HISTORY OF PRESENT ILLNESS: 57 year old male presents to ED with injured middle finger to left hand. He reports he injured it using a saws-all approximately 4-5 days ago. At that time he wrapped it in gauze and kept working. He didn't think much of the injury, and kept it wrapped in gauze. He reports he has been "out of it" the past 2 days. He reports fevers and chills the past two days and sleeping a lot. Reports he woke up today due to the smell of his finger. Reports pain is a 5 out of 10 in that finger. Reports he has not eaten anything for the past couple of days, but did eat something prior to coming to the ER. 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 REVIEW OF SYSTEMS: Constitutional: Reports fevers, chills, decreased appetite. Respiratory: No cough, no dyspnea. Cardiovascular: No chest pain, no palpitations. Gastrointestinal: No vomiting, no abdominal pain. Musculoskeletal: No back pain. Integumentary: Wound to distal end of left middle finger. Reports wound has foul odor to it. Allergies: Coded Allergies: penicillin G (Verified Allergy, Severe, RASH, 09/01/18) tramadol (Verified Adverse Reaction, Mild, Headache, 09/01/18) Uncoded Allergies: STRAWBERRIES (Allergy, Unknown, HIVES, 10/24/13) Home Meds Reported Medications Aspirin/Acetaminophen/Caffeine (EXCEDRIN EXTRA STRENGTH CAPLET) 1 Each Tablet, 1 EACH PO QDAY 04/20/18 Glipizide (GLIPIZIDE) 5 Mg Tablet, 5 MG PO QDAY 03/19/18 Discontinued Scripts Oxycodone Hcl/Acet 5/325 Mg (ENDOCET 5-325 TABLET) 1 Each Tablet, 1 TAB PO Q4H PRN for PAIN, #20 TAB 0 Refills Prov:PENELOPE ROOT MD 09/02/18 Clindamycin Hcl (CLINDAMYCIN HCL) 300 Mg Capsule, 1 CAP PO Q6H, #40 CAPSULE 0 Refills Prov:PENELOPE ROOT MD 09/02/18 Sulfamethoxazole/Trimet 800-160 Mg Tab (BACTRIM DS TABLET) 1 Each Tablet, 1 TAB PO Q12H, #30 TAB 0 Refills Prov:PENELOPE ROOT MD 08/28/18 Past Medical/Surgical History Past medical hx of Migraines, rheumatic fever at 9 years of age, heart murmur as a child, possible prostate problems, osteomylitis of jaw and right leg, right great toe contracture, arthritis, right leg and right finger fracture, back pain, diabetes, marijuana use, anxiety, depression, suicidal ideation, . Past surgical hx for appendectomy, jaw surgery in 2010, right BKA, left index finger partial amputation, second toe amputation of left foot 03/2018. Reviewed Nurses Notes: Yes Hx Smoking: Yes ("4/YEAR") Smoking Status: Light Tobacco Smoker Exposure to Second Hand Smoke?: Yes Hx Substance Use Disorder: Yes (MARiJUANA ) Hx Alcohol Use: Yes Constitutional Vital Sign - Last 24 Hours 10/17/18 15:09 Temp 98.6 Pulse 86 Resp 16 B/P (MAP) 121/68 Pulse Ox 92 O2 Delivery Room Air Physical Exam General Appearance: The patient is alert, has no immediate need for airway protection and no current signs of toxicity. Eyes: Pupils equal and round no injection. Respiratory: Chest is non tender, lungs are clear to auscultation. Cardiac: regular rate and rhythm Gastrointestinal: Abdomen is soft and non tender, no masses, bowel sounds normal. Musculoskeletal: Neck: Neck is supple and non tender. Extremities have full range of motion and are non tender. Skin: Wound to distal end of left middle finger. Wound is covered in slough and draining small amount of serosanguenous drainage. Wound is approximately 1cm in diameter. DIFFERENTIAL DIAGNOSIS: After history and physical exam differential diagnosis was considered for wound infection of left middle finger, finger fracture, sepsis. Medical Decision Making Data Points Result Diagram: 10/17/18 1548 10/17/18 1548 Laboratory Hematology Test 10/17/18 15:48 White Blood Count 6.3 k/uL (4.5-11.0) Red Blood Count 5.66 M/uL (4.00-5.60) H Hemoglobin 16.2 g/dL (14.0-18.0) Hematocrit 45.6 % (42.0-52.0) Mean Corpuscular Volume 80.6 fL (80.0-96.0) Mean Corpuscular Hemoglobin 28.6 pg (26.0-33.0) Mean Corpuscular Hemoglobin Concent 35.4 g/dL (32.0-36.0) Red Cell Distribution Width 13.9 % (11.5-14.5) Platelet Count 261 K/uL (150-450) Mean Platelet Volume 7.0 fL (7.2-11.1) L Neutrophils (%) (Auto) 66.5 % (39.4-72.5) Lymphocytes (%) (Auto) 20.7 % (17.6-49.6) Monocytes (%) (Auto) 9.7 % (4.1-12.4) Eosinophils (%) (Auto) 2.5 % (0.4-6.7) Basophils (%) (Auto) 0.6 % (0.3-1.4) Nucleated RBC Relative Count (auto) 0.2 /100WBC Neutrophils # (Auto) 4.2 K/uL (2.0-7.4) Lymphocytes # (Auto) 1.3 K/uL (1.3-3.6) Monocytes # (Auto) 0.6 K/uL (0.3-1.0) Eosinophils # (Auto) 0.2 K/uL (0.0-0.5) Basophils # (Auto) 0.0 K/uL (0.0-0.1) Nucleated RBC Absolute Count (auto) 0.01 K/uL Erythrocyte Sedimentation Rate 14 mm/HOUR (0-20) Chemistry Test 10/17/18 15:48 Sodium Level 132 mmol/L (137-145) Potassium Level 4.0 mmol/L (3.5-5.0) Chloride Level 97 mmol/L (98-107) Carbon Dioxide Level 24 mmol/L (22-30) Blood Urea Nitrogen 21 mg/dl (9-21) Creatinine 1.10 mg/dl (0.66-1.25) Glomerular Filtration Rate Calc > 60.0 Random Glucose 326 mg/dl (75-110) Calcium Level 9.2 mg/dl (8.4-10.2) Total Bilirubin 0.8 mg/dl (0.2-1.3) Aspartate Amino Transf (AST/SGOT) 21 U/L (0-35) Alanine Aminotransferase (ALT/SGPT) 17 U/L (0-56) Alkaline Phosphatase 179 U/L (0-126) C-Reactive Protein < 0.5 mg/dl (<1.0) Total Protein 7.1 g/dl (6.3-8.2) Albumin 3.6 g/dl (3.5-5.0) Microbiology Microbiology Date/Time Source Procedure Growth Status 10/17/18 15:32 Finger Gram Stain - Final Resulted 10/17/18 15:32 Finger Wound Culture Pending Resulted 10/17/18 15:32 Finger Anaerobic Culture Pending Resulted EKG/Imaging Imaging PATIENT NAME: Hamlet Hall : 1960 MR: [id number] V: [id number] EXAM DATE: ORDERING PHYSICIAN: THEODORE CHASE TECHNOLOGIST: Location: [facility] - [place], [place] Patient: Hamlet Hall : 1960 Visit/Account:[id number] Date of Sevice: 10/17/2018 HAND COMPLETE LEFT History: Trauma to middle finger left hand. Comparison study: April 20, 2014. Findings: There is soft tissue and bony injury to predominantly the volar surface of the distal aspect of the left third digit. There is injury to the volar portion of the distal phalanx. There are changes of osteoarthrosis involving the left third DIP joint. There has been amputation of the left second digit at the PIP joint. IMPRESSION: 1. Soft tissue and bony injury to the distal aspect of the third digit of the left hand. There is a fracture involving predominantly the volar surface of the distal phalanx. 2. Status post left second digit amputation at the PIP joint. ED Course/Re-evaluation ED Course Upon arrival to the ED, patient admitted to an exam room, hx and physical obtained, differentials considered. Patient presents with injured middle finger to left hand. He reports he thinks he injured it using a saws-all approximately 4-5 days ago. At that time he wrapped it in gauze and kept working. He didn't think much of the injury, and kept it wrapped in gauze. He reports he has been "out of it" the past 2 days. He reports fevers and chills the past two days and sleeping a lot. Reports he woke up today due to the smell of his finger. Reports pain is a 5 out of 10 in that finger. 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 On exam, he has wound to distal end of left middle finger. Wound is covered in slough and draining small amount of serosanguenous drainage. Wound is approximately 1cm in diameter. Heart rate and rhythm regular, lungs clear to auscultation. IV started. Wound cultures obtained. CBC, CMP, lactate, ESR, CRP, and blood cultures drawn. Lactate critical at 4.1. WBC normal at 6.3 with no left shift. Random glucose 326. Alk phos elevated at 179. CRP is negative. X-ray showed soft tissue and bony injury to the distal aspect of the third digit of the left hand. There is a fracture involving predominantly the volar surface of the distal phalanx. [address] Guerra, on-call orthopedic contacted regarding x-ray. Dr. Guerra would like to operate tomorrow and have him admitted overnight for IV antibiotics and stabilize his blood sugar. Dr. Lo, hospitalist, contacted, and he agreed to admit. Patient in agreement with plan of care. Decision to Disposition Date: Oct 17, 2018 Decision to Disposition Time: 17:17 Depart Departure Latest Vital Signs Vital Signs Date Time Temp Pulse Resp B/P (MAP) Pulse Ox O2 Delivery O2 Flow Rate FiO2 10/17/18 15:09 98.6 86 16 121/68 92 Room Air Impression: Primary Impression: Finger fracture, left Additional Impression: Wound infection Condition: Condition Unchanged Disposition: Admitted from ER Referrals: ZENA GUERRA APRN (PCP) HR REPRESENTATIVE/PA consult with MD: Verbally MD Consult Note: Dr. Guerra, orthopedic Dr. Lo, hospitalist Problem Qualifiers Primary Impression: Finger fracture, left Encounter type: initial encounter Finger: middle finger Fracture type: open Phalanx: distal Fracture alignment: displaced Qualified Codes: S62.633B - Displaced fracture of distal phalanx of left middle finger, initial encounter for open fracture THEODORE CHASE [facility] Oct 17, 2018 15:40
[2018-10-17] MEDS ORDERED: cefTRIAXone(*) 2 GM VIAL 2 GM in NS(*) 0.9% 100 ML MINI-BAG 100 ML IVPB ONE (15:55)
--- NOTE | 2018-10-17 16:20 | RADIOLOGY IMAGING REPORT ---
FACILITY: [facility] PATIENT NAME: Hamlet Hall : 1960 MR: [id number] V: [id number] EXAM DATE: ORDERING PHYSICIAN: THEODORE CHASE TECHNOLOGIST: Location: [facility] - [place] Patient: Hamlet Hall : 1960 Visit/Account:[id number] Date of Sevice: 10/17/2018 HAND COMPLETE LEFT History: Trauma to middle finger left hand. Comparison study: April 20, 2014. Findings: There is soft tissue and bony injury to predominantly the volar surface of the distal aspe ct of the left third digit. There is injury to the volar portion of the distal phalanx. There are changes of osteoarthrosis involving the left third DIP joint. There has been amputation of the left second digit at the PIP joint. IMPRESSION: 1. Soft tissue and bony injury to the distal aspect of the third digit of the left hand. There is a f racture involving predominantly the volar surface of the distal phalanx. 2. Status post left second digit amputation at the PIP joint. Report Dictated By: Gemran Patel MD at 10/17/2018 4:10 PM Report E-Signed By: German Patel MD at 10/17/2018 4:12 PM WSN:[id number]
[2018-10-17 16:23] LABS: PLATELET COUNT, AUTOMATED 261 K/uL (150-450)
[2018-10-17] MEDS ORDERED: NS(*) 0.9% 1000 ML BAG 1,000 ML IV PRN (17:46)
[2018-10-17] MEDS ORDERED: NS 0.9% IV ONE (17:50)
[2018-10-17] MEDS ORDERED: INFLUENZA VIRUS VAC 0.5ML SYR IM ONLY ONE (17:50)
--- NOTE | 2018-10-17 18:03 | History & Physical ---
History of Present Illness Chief Complaint Finger pain History of Present Illness This patient presented to the emergency room complaining of pain in his left middle finger. He cut himself on a saw several days ago, and it has since become red and painful. He has also noted a foul odor. History Problems: (1) Diabetic foot ulcer with osteomyelitis Status: Resolved (2) Osteomyelitis of ankle or foot, right, acute Status: Resolved (3) History of rheumatic fever Status: Resolved (4) Amputated toe of right foot Status: Chronic (5) Cellulitis of fifth toe, right Status: Acute (6) Cellulitis of fourth toe, right Status: Acute (7) Cellulitis of index finger Status: Acute (8) Cellulitis of index finger Status: Acute (9) S/P BKA (below knee amputation) Status: Chronic Home Meds Reported Medications Aspirin/Acetaminophen/Caffeine (EXCEDRIN EXTRA STRENGTH CAPLET) 1 Each Tablet, 1 EACH PO QDAY 04/20/18 Glipizide (GLIPIZIDE) 5 Mg Tablet, 5 MG PO QDAY 03/19/18 Discontinued Scripts Oxycodone Hcl/Acet 5/325 Mg (ENDOCET 5-325 TABLET) 1 Each Tablet, 1 TAB PO Q4H PRN for PAIN, #20 TAB 0 Refills Prov:PENELOPE ROOT MD 09/02/18 Clindamycin Hcl (CLINDAMYCIN HCL) 300 Mg Capsule, 1 CAP PO Q6H, #40 CAPSULE 0 Refills Prov:PENELOPE ROOT MD 09/02/18 Sulfamethoxazole/Trimet 800-160 Mg Tab (BACTRIM DS TABLET) 1 Each Tablet, 1 TAB PO Q12H, #30 TAB 0 Refills Prov:PENELOPE ROOT MD 08/28/18 Allergies: Coded Allergies: penicillin G (Verified Allergy, Severe, RASH, 09/01/18) tramadol (Verified Adverse Reaction, Mild, Headache, 09/01/18) Uncoded Allergies: STRAWBERRIES (Allergy, Unknown, HIVES, 10/24/13) Patient History: FH: bipolar disorder FH: cancer AUNT AUNT FH: diabetes mellitus MOTHER AUNT GRANDMA FH: heart attack MOTHER FH: ovarian cancer GRANDMA FH: stroke MOTHER Hx Smoking: Yes ("4/YEAR") Smoking Status: Light Tobacco Smoker Exposure to Second Hand Smoke?: Yes Caffeine Intake: Coffee, Tea, Soda Caffeine/Cups Per Day: TWICE A WEEK Hx Alcohol Use: Yes Hx Substance Use Disorder: Yes (MARiJUANA ) Social Drug Use: Occasional Social Drugs: Marijuana, Prescription Drugs, Meth, Amphetamines, Crack, Cocaine Amount Of Social Drug/s Used: methamphetamine months ago Review of Systems All Systems Reviewed/Normal: Yes Exam Vital Signs Vital Signs Date Time Temp Pulse Resp B/P (MAP) Pulse Ox O2 Delivery O2 Flow Rate FiO2 10/17/18 17:13 75 16 105/72 (83) 92 Room Air 10/17/18 15:09 98.6 Neuro: No Gross deficits Eyes: PERRLA Cardiovascular: Regular Rate and Rhythm Respiratory: Clear to Auscultation GI: Abd Soft and Non-Tender Medical Decision Making Data Points Result Diagram: 10/17/18 1548 10/17/18 1548 Assessment and Plan Problems: (1) Open fracture of phalanx of left middle finger Assessment & Plan: He is scheduled for surgery with Dr. Guerra tomorrow. (2) Wound infection Onset Date: 11/12/2013 Status: Acute Assessment & Plan: He has been started on empiric treatment with meropenem. (3) Sepsis Assessment & Plan: He did have an elevated lactate on admission. He has been ordered a fluid bolus and a lactate series is ordered. (4) DMII (diabetes mellitus, type 2) Assessment & Plan: He is on chronic treatment with glyburide, which is on hold. He has been placed on sliding scale level #2. Venous Thromboembolism Antithrombotics Is Pt On Any Antithrombotics?: No Exam Sepsis Risk: No Definite Risk PENELOPE NASH DO Oct 17, 2018 18:03
[2018-10-17] MEDS: MEROPENEM IV SCH (18:31)
[2018-10-17] MEDS: NS 0.9% IV SCH (18:31)
[2018-10-17] MEDS: MINI IV SCH (18:31)
[2018-10-17 19:48] VITALS: BP 136/90
[2018-10-17] MEDS: INSULIN HUM LISPRO 100 UN/ML 3 ML VIAL SUBQ PRN ×2 (20:55→20:56)
[2018-10-17] MEDS: MORPHINE 2 MG/ML SYR IVP PRN (21:43)
[2018-10-17 22:48] VITALS: BP 124/87
[2018-10-18] MEDS: MORPHINE 2 MG/ML SYR IVP PRN (00:32)
[2018-10-18] MEDS: MEROPENEM IV SCH ×2 (01:39→08:30)
[2018-10-18] MEDS: MINI IV SCH ×2 (01:39→08:30)
[2018-10-18] MEDS: NS 0.9% IV SCH ×2 (01:39→08:30)
[2018-10-18 03:27] VITALS: BP 137/94
[2018-10-18 05:53] LABS: PLATELET COUNT, AUTOMATED 241 K/uL (150-450)
--- NOTE | 2018-10-18 06:05 | RADIOLOGY IMAGING REPORT ---
FAC[place] [facility] [place]IENT NAME: Hamlet Hall : 1960 MR: [id number] V: [id number] EXAM DATE: ORDERING PHYSICIAN: PENELOPE NASH TECHNOLOGIST: Location: [facility] - [place] Patient: Hamlet Hall : 1960 Visit/Account:[id number] Date of Sevice: 10/17/2018 Study: Frontal and lateral views of the chest Indication: Preop Comparison study: March 05, 2018 Findings: PA and lateral views of the chest demonstrate no evidence of acute infiltrate. There are fibrotic streaks present within the left lower lobe. There is no evidence of pleural effusion. There is no evidence of pneumothorax. The mediastinal, cardiac, and diaphragmatic contours are unremarkable. The visualized bony structures are unremarkable. IMPRESSION: No acute cardiopulmonary abnormality identified. Report Dictated By: Víctor Smith at 10/18/2018 5:55 AM Report E-Signed By: Víctor Smith at 10/18/2018 5:57 AM WSN:[id number]
--- NOTE | 2018-10-18 06:18 | EKG ---
[place] [facility] [place]IENT NAME: DONNIE COVARRUBIAS : [id number] MR: [id number] V: [id number] EXAM DATE: ORDERING PHYSICIAN: PENELOPE NASH TECHNOLOGIST: KAMARI Test Reason : PREOP Blood Pressure : / mmHG Vent. Rate : 084 BPM Atrial Rate : 084 BPM P-R Int : 216 ms QRS Dur : 102 ms QT Int : 396 ms P-R-T Axes : 054 -74 047 degrees QTc Int : 467 ms Sinus rhythm with 1st degree AV block Left axis deviation Inferior infarct (cited on or before 02-SEP-2018) Abnormal ECG When compared with ECG of 02-SEP-2018 06:35, No significant change was found Confirmed by PENELOPE NASH ([id number]) on 10/18/2018 6:25:18 AM Referred By: Confirmed By:PENELOPE NASH
[2018-10-18] MEDS ORDERED: FAMOTIDINE 20 MG TAB PO ONE (07:00)
[2018-10-18 07:36] VITALS: BP 154/99
[2018-10-18] MEDS ORDERED: fentaNYL CITR 100 MCG/2 ML AMP ONE ×2 (07:43→09:49)
[2018-10-18] MEDS ORDERED: PROPOFOL EMUL(*) 10MG/ML 20 ML 20 ML ONE (07:44)
[2018-10-18] MEDS ORDERED: LIDOCAINE 2% IV 100 MG/5ML SYR ONE (07:44)
[2018-10-18] MEDS ORDERED: NORMOSOL R SOLN(*) 1000 ML BAG 1,000 ML IV ONE (08:00)
[2018-10-18] MEDS ORDERED: ONDANSETRON 4 MG/2 ML VIAL ONE (08:14)
--- NOTE | 2018-10-18 09:31 | Medical Nutrition Therapy ---
Nutrition Anthropometrics Height (Inches): 65.00 Height (Calculated Centimeters: 165.689645 Weight (Pounds): 175 Weight (Calculated Kilograms): 79.464 Artemio Nutrition Score: Adequate Artemio Nutrition Risk Score: 20 Dietary Referral Nutrition Risk Factors: Special Diet Nutrition Risk Comment: Physical Findings Physical Appearance: Overweight BMI 25-29 Skin Appearance Skin Appearance: Edema Edema Location Modifier: Edema Location: Type of Edema: Degree of Edema: Gastrointestinal Symptoms GI Symtoms: Tube Present: Bowel Sounds: Recent Bowel Pattern: Stool Characteristics: Nutritional Diagnosis Nutritional Risk Acuity 2: Blood Glucose > 300mg/dl, Abcess/Non-Healing Wound, Sepsis Past Medical History: HX NON-COMPLIANCE WITH ALL ASPECTS OF DIABETES PER H&P, Toe amputation, depression, T2DM, diabetic neuropathy, diabetic foot ulcer, hypertension, wound infection, illicit drug use, rheumatic fever. cellulitis of fourth and fifth rt toes, cellulitis of index finger, BKA Nutritional Acuity: 2-Moderate Nutrition Diagnosis: Not Ready for Diet Change Nutrition Etiology: Unwilling to Apply NutrEd Nutrition Problem/Etiology/Sym: Not ready for diet change as related to unwilling to apply nutr ed as evidenced by complications to T2DM Energy Requirement: 1976 ((m s jeor x 1. x1.2)-124 -reduced by 5.9% due to BKA) Protein Requirement: 79 (1 g protein/kg) Fluid Requirement: 1976 (1mL/1kcal) Diet Type: NPO (Nothing by Mouth), Diabetic Nutrition Intervention: Incr diet as tolerated, Check glucose Additional Diet Restrictions: ALLERGY: STRAWBERRIES Nutrition Monitoring & Eval Nutritional Goals Comment: Progress from NPO to ADA as tolerated RD Patient Assessment Time: [address] Assessment Type: RD Assessment Patient Nutrition Acuity: 2-Moderate Follow Up Date: Oct 20, 2018 Nutritional Comment: Pt admitted for finger pain after a cut from a saw. Dx with open fracture of phalanx of left middle finger, wound infection, sepsis, and T2DM. Pt has a hx of complications of T2DM including BKA. Pt currently NPO prior to surgery and will begin ADA diet when PO is tolerated. Pt is allergic to strawberries, no strawberries will be provided to pt. Blood glucose has ranged from 151-326. Na of 136 is decreased. Alkaline phosphatase of 179 is elevated. Pt is receiving insulin. Monitor for tolerance of ADA diet. -DANE BRITO Oct 18, 2018 09:31
[2018-10-18 10:14] VITALS: BP 149/96
--- NOTE | 2018-10-18 10:22 | Hospitalist Progress Note ---
Subjective Progress Notes Subjective He was admitted with infected finger. He went to surgery this morning. He had no acute events overnight. Patient Complains of: Cardiovascular: No: Chest Pain Respiratory: No: Shortness of Breath Physical Exam Vital Signs Date Time Temp Pulse Resp B/P (MAP) Pulse Ox O2 Delivery O2 Flow Rate FiO2 10/18/18 10:14 96.8 85 12 149/96 (113) 93 Nasal Cannula 2.0 Intake and Output 10/18/18 01:03 Intake Total 3050 ml Output Total 625 ml Balance 2425 ml Intake Oral 0 ml IV Total 3050 ml Output Urine Total 625 ml # Voids 1 General Appearance: Alert, Awake, No Acute Distress, Afebrile Neuro: No Gross deficits Cardiovascular: Regular Rate and Rhythm Respiratory: No Respiratory Distress, Clear to Auscultation Psych: Alert & Oriented X3, Appropriate Mood & Affect Result Diagram: 10/18/1852110/18/18521 Assessment and Plan Problems: (1) Open fracture of phalanx of left middle finger Assessment & Plan: He had surgery with Dr. Guerra 10/18. He plans to discharge tomorrow with antibiotics. (2) Wound infection Onset Date: 11/12/2013 Status: Acute Assessment & Plan: He was started on empiric treatment with meropenem. (3) Sepsis Assessment & Plan: He did have an elevated lactate on admission. He was given a fluid bolus and a lactate is now normal. (4) DMII (diabetes mellitus, type 2) Assessment & Plan: He is on chronic treatment with glyburide, which is on hold. He has been placed on sliding scale level #2. Exam Sepsis Risk: No Definite Risk BRAULIO AYERS SUPERVISOR [employer]POSIT Oct 18, 2018 10:22
[2018-10-18] MEDS: INSULIN HUM LISPRO 100 UN/ML 3 ML VIAL SUBQ PRN (10:45)
[2018-10-18] MEDS ORDERED: CLIN300C99 PO (12:36)
--- NOTE | 2018-10-18 14:17 | Hospitalist Depart ---
Discharge Summary Reason for Hosp/Final Diag: (1) Open fracture of phalanx of left middle finger Hospital Course & Plan: He had surgery with Dr. Guerra 10/18. He left AMA, because he felt he was being held against his will. He would not await discharge instructions. He was prescribed antibiotic to his pharmacy listed. He was not given discharge follow up instructions. (2) Wound infection Onset Date: 11/12/2013 Status: Acute Hospital Course & Plan: He was started on empiric treatment with meropenem. He was transitioned to Clindamycin and called into his pharmacy. (3) Sepsis Hospital Course & Plan: He did have an elevated lactate on admission. He was given a fluid bolus and a lactate is now normal. (4) DMII (diabetes mellitus, type 2) Hospital Course & Plan: He is on chronic treatment with glyburide, which was on hold for surgery. He was placed on sliding scale level #2. Departure Weight (Pounds): 175 Weight (Ounces): 3.0 Result Diagram: 10/18/1852110/18/18521 Condition: Improved Discharge: Home, Self Care Discharge Instructions Home Meds Active Scripts Clindamycin Hcl (CLINDAMYCIN HCL) 300 Mg Capsule, 300 MG PO QID, #40 CAPSULE Prov:IQRA ROSADO MD 10/18/18 Reported Medications Aspirin/Acetaminophen/Caffeine (EXCEDRIN EXTRA STRENGTH CAPLET) 1 Each Tablet, 1 EACH PO QDAY 04/20/18 Glipizide (GLIPIZIDE) 5 Mg Tablet, 5 MG PO QDAY 03/19/18 Discontinued Scripts Oxycodone Hcl/Acet 5/325 Mg (ENDOCET 5-325 TABLET) 1 Each Tablet, 1 TAB PO Q4H PRN for PAIN, #20 TAB 0 Refills Prov:PENELOPE ROOT MD 09/02/18 Clindamycin Hcl (CLINDAMYCIN HCL) 300 Mg Capsule, 1 CAP PO Q6H, #40 CAPSULE 0 Refills Prov:PENELOPE ROOT MD 09/02/18 Sulfamethoxazole/Trimet 800-160 Mg Tab (BACTRIM DS TABLET) 1 Each Tablet, 1 TAB PO Q12H, #30 TAB 0 Refills Prov:PENELOPE ROOT MD 08/28/18 Diet: Diabetic Activity: As Tolerated Special Instructions: Take all of your perscribed antibiotic, call [facility] to schedule a follow up appointment Copies to: MANSI GUERRA MD; ZENA GUERRA APRN ; Venous Thromboembolism Antithrombotics Is Pt On Any Antithrombotics?: No BRAULIO AYERS TRACK LAYING EQUIPMENT OPERATOR Oct 18, 2018 14:17
--- NOTE | 2018-10-19 02:16 | OPERATIVE REPORT 1 ---
EVENT DATE: October 18, 2018 SURGEON: Abdiaziz Guerra MD ANESTHESIOLOGIST: Vinicius Brown MD ANESTHESIA: General endotracheal anesthesia. PREOPERATIVE DIAGNOSIS Left long finger distal tip open fracture and infection. POSTOPERATIVE DIAGNOSIS Left long finger distal tip open fracture and infection. PROCEDURE PERFORMED Partial amputation and fingernail removal with primary closure of the left long fingertip. INTRAVENOUS FLUIDS 700 mL. ESTIMATED BLOOD LOSS Minimal. IMPLANTS None. SPECIMENS None. DRAINS None. COMPLICATIONS None. DISPOSITION Postanesthesia care unit. INDICATIONS FOR SURGERY Mr. Hall was admitted to the hospital yesterday for an injury to the left long fingertip about five days ago that became quite infected. He had a tuft fracture on radiologic examination, and a significant infection. Mr. Mac was counseled regarding the importance of undergoing surgical debridement and potential amputation of the distal fingertip. He voiced an understanding. DESCRIPTION OF PROCEDURE On the day of surgery, patient was met in his room and informed consent was obtained. He was brought to the operating room, and after succumbing to anesthesia was positioned in the supine position with the left hand on an arm table. Final time-out was undertaken to confirm correct patient, correct extremity, and correct surgery. The hand was then prepped and draped in the standard sterile orthopedic fashion. There was significant amount of purulence at initial investigation, and this was carefully debrided out. A significant portion of necrotic tissue was debrided out of the wound bed, and the wound edges were freshened with the combination of a knife and tenotomy scissors. The distal tuft was exposed and rongeured back to a stable base. The fingernail was then removed, and some epidermis which had suffered epidermolysis was also trimmed away back to good skin. Once we had good bleeding wound edges all around, we irrigated the wound with greater than 2L of sterile saline solution. We were then able to close the wound primarily with 4-0 Prolene sutures, and we applied a sterile dressing consisting of Xeroform gauze, plain gauze, and tube gauze. Sponge and needle counts were correct x2. POSTOPERATIVE CARE PLAN Patient will remain in the hospital for further IV antibiotics under the watchful eye of our hospitalists. I will check his wound and do a dressing change tomorrow. We will plan on leaving those sutures in for probably 10 days or so, depending on how the wound looks moving forward. [facility]
--- NOTE | 2018-10-19 02:39 | CONSULTATION ---
EVENT DATE: October 18, 2018 CHIEF COMPLAINT Left middle finger injury. HISTORY OF PRESENT ILLNESS Mr. Hall is a 57-year-old gentleman who states that he injured his fingertip of his left middle finger about five days ago with a [place]. He originally dressed it, but then started noticing significant odor coming from the finger as well as purulent discharge. 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 His review of systems revealed a report of some fevers, chills, and decreased appetite. The finger itself is swollen, has a foul odor, and has purulent discharge. Vital signs were essentially normal. He had a normal white count but did have a high lactate at 4.3. X-rays showed soft tissue and bone injury to the volar surface of the distal aspect of the left middle finger. IMPRESSION AND PLAN The patient was admitted to the hospital for further evaluation and observation. He was started on intravenous antibiotics and advised to undergo irrigation, debridement, and possible partial amputation of that fingertip. We discussed risks, benefits, and alternatives, and he consented for the procedure. [facility]
[2018-10-22] MEDS ORDERED: CLIN300C99 PO (12:53)
== END 2018-10-18 12:39 | disposition left against medical advice (07) ==
LOC: ER 15:11 → MED 17:07 → INTOOBSV 17:07
PROVIDERS: ADMIT Family Medicine; ATTEND Family Medicine
DX: I10 Essential (primary) hypertension (principal); E11.9 Type 2 diabetes mellitus without complications
CPT/HCPCS: 26236; 36415; 36416; 71046; 73130; 82948; 83605; 85025; 85651; 86140; 87040; 87070; 87073; 87077; 87186; 87205; 93005; 96365; 99284; G0378; J0696; J1815; J2001; J2185; J2270; J2405; J2704; J3010; J7030; 82040; 82247; 82310; 82374; 82435; 82565; 82947; 84075; 84132; 84155; 84295; 84450; 84460; 84520